=== PATIENT | male | born 1950 | race Caucasian/White ===

== ENCOUNTER 2018-04-10 14:53 | Emergency (ER) | payer BC, MEDICARE ==
[~2018-04-10] VITALS: Ht 188 cm; Wt 96.0 kg
[~2018-04-10 14:53] MED LIST: ASPI-1265 PO; PSYL575P22 PO
[2018-04-10 14:56] VITALS: BP 137/37
[2018-04-10] MEDS ORDERED: LIDOcaine 1.5% w/epinephrine 1:200,000 5ml ampul IJ ONE (16:55)
[2018-04-10] MEDS ORDERED: LIDOcaine 1% w/epiNEPHrine 1:200,000 30ml vial IJ ONE (17:00)
== END 2018-04-10 17:31 | disposition home or self-care (01) ==
LOC: ER 14:54
DX: S61.211A Laceration without foreign body of left index finger without damage to nail, initial encounter (principal); Z88.6 Allergy status to analgesic agent; Z88.5 Allergy status to narcotic agent; W26.8XXA Contact with other sharp object(s), not elsewhere classified, initial encounter; Y93.89 Activity, other specified; Y92.89 Other specified places as the place of occurrence of the external cause; Y99.8 Other external cause status
CPT/HCPCS: 12001; 99283; J3490

== ENCOUNTER 2018-04-24 07:44 | Emergency (ER) | payer BC, MEDICARE ==
[~2018-04-24] VITALS: Ht 188 cm; Wt 90.0 kg
[2018-04-24 08:45] VITALS: BP 100/56
== END 2018-04-24 08:49 | disposition home or self-care (01) ==
LOC: ER 07:45
DX: S61.212A Laceration without foreign body of right middle finger without damage to nail, initial encounter (principal); Z79.82 Long term (current) use of aspirin; Z88.5 Allergy status to narcotic agent; W45.8XXA Other foreign body or object entering through skin, initial encounter; Y93.89 Activity, other specified; Y92.89 Other specified places as the place of occurrence of the external cause; Y99.8 Other external cause status
CPT/HCPCS: 12001; 99283

== ENCOUNTER 2024-01-20 21:53 | Inpatient (IN) | payer MEDICARE, OTHER ==
[~2024-01-20] VITALS: Ht 188 cm; Wt 99.1 kg
[2024-01-20 22:51] LABS: BASOPHILS % (AUTO) 0.2 % (0-1); EOSINOPHILS % (AUTO) 0.2 % (0-6); HEMOGLOBIN 14.2 g/dl (14.0-17.9); LYMPHOCYTES # (AUTO) 0.5 X10'3 (1.1-4.8); LYMPHOCYTES % (AUTO) 3.2 % (21-51); MEAN CORPUSCULAR HEMOGLOBIN 30.2 PG (27.0-31.0); MEAN CORPUSCULAR HGB CONC 32.9 g/dL (33.0-36.5); MEAN CORPUSCULAR VOLUME 91.7 FL (78-98); MEAN PLATELET VOLUME 7.4 FL (7.4-10.4); MONOCYTES # (AUTO) 0.1 X10'3 (0-0.9); MONOCYTES % (AUTO) 0.4 % (2-12); NEUTROPHILS # (AUTO) 16.4 X10'3 (1.8-7.7); PLATELET COUNT 404 X10'3 (140-440); RED BLOOD COUNT 4.69 X10'6 (4.70-6.10); WHITE BLOOD COUNT 17.1 X10'3 (4.5-11.0)
[2024-01-20 22:58] LABS: ALANINE AMINOTRANSFERASE 26 U/L (12-78); ALBUMIN 3.1 G/DL (3.4-5.0); ALBUMIN/GLOBULIN RATIO 0.7 (1.1-1.5); ALKALINE PHOSPHATASE 94 IU/L (46-116); ANION GAP 8 (8-16); ASPARTATE AMINO TRANSFERASE 28 U/L (10-37); BILIRUBIN,TOTAL 0.6 MG/DL (0.1-1.0); BLOOD UREA NITROGEN 20 MG/DL (7-18); BUN/CREATININE RATIO 13.7 (10.0-20.0); CALCIUM 9.1 MG/DL (8.5-10.1); CHLORIDE 103 MMOL/L (99-107); CREATININE 1.46 MG/DL (0.60-1.10); GLUCOSE 160 MG/DL (70-104); LIPASE 18 U/L (16-77); SODIUM 137 MMOL/L (135-145); TOTAL CARBON DIOXIDE 25.6 MMOL/L (24-32); TOTAL PROTEIN 7.3 G/DL (6.4-8.2); eCRCL 52 ML/MIN; eGFR 47 ML/MIN
[2024-01-20 23:19] LABS: BILIRUBIN,URINE NEGATIVE (Neg); COLOR,URINE YELLOW (Yellow); GLUCOSE, URINE NEGATIVE (Neg); KETONES,URINE NEGATIVE (Neg); LEUKOCYTE ESTERASE ,URINE SMALL (Neg); NITRITES, URINE POSITIVE (Neg); OCCULT BLOOD,URINE MODERATE (Neg); PH,URINE 5.5 (4.8-8.0); PROTEIN,URINE NEGATIVE (Neg); UROBILINOGEN,URINE 0.2 E.U/dL (0.2-1.0)
[2024-01-20 23:20] LABS: CLARITY,URINE SLIGHTLY CLOUDY (Clear); UA COLLECTION TYPE CLN CATCH MIDSTREAM
[2024-01-20 23:32] LABS: BACTERIA,URINE 4+ /HPF (Neg); SQUAMOUS EPITHELIAL CELL,UR FEW /LPF (FEW)
[2024-01-20 23:33] LABS: TRANSITIONAL EPI CELLS,URINE FEW /HPF; WBC CLUMPS,URINE MODERATE /HPF (NEGATIVE); WBC,URINE 30-50 /HPF (0-4)
[2024-01-20] MEDS: normal saline 1000ml 1,000 ML IV ONE (23:52)
[2024-01-21] VITALS (19 sets, daily range): BP systolic 94–122; BP diastolic 42–66; PULSE 69–94; RESP 16–23; TEMP 98.4–98.6; O2SAT 92–98
[2024-01-21] MEDS: fentaNYL/PF 50MCG/1 ML 2ML syringe IV ONE
[2024-01-21] MEDS: ondansetron/PF 4mg/2ml inj IV ONE
[2024-01-21] MEDS: ketorolac trometh 15mg/ml vial 15 MG/ML ML IV ONE (00:26)
[2024-01-21] MEDS ORDERED: ondansetron/PF 4mg/2ml inj IV PRN ×2 (01:20→23:40)
[2024-01-21] MEDS: CefTRIAXone 2gm/D5W 50ml BAG 50 ML IV ONE (01:32)
[2024-01-21] MEDS: normal saline 1000ml 1,000 ML IV SCH (02:08)
[2024-01-21] MEDS: HYDROmorphone inj. 0.5 MG/0.5 ML DISP.SYRIN IV PRN (03:50)
[2024-01-21] MEDS: acetaminophen 325mg tablet PO PRN (05:55)
[2024-01-21] MEDS: HYDROcodone/acetaminophen 5mg/325mg tablet PO PRN (05:56)
[2024-01-21] MEDS: heparin, porcine 5000 units/ml vial SQ SCH (08:00)
[2024-01-21] MEDS: psyllium seed 5.8 gm packet (sugar-free) PO SCH (08:18)
[2024-01-21 09:03] LABS: URIC ACID 7.5 MG/DL (3.5-7.2)
[2024-01-21 10:06] LABS: BASOPHILS # (AUTO) 0.1 X10'3 (0-0.2); BASOPHILS % (AUTO) 0.2 % (0-1); EOSINOPHILS % (AUTO) 0 % (0-6); HEMATOCRIT 38.3 % (42.0-52.0); HEMOGLOBIN 12.6 g/dl (14.0-17.9); LYMPHOCYTES # (AUTO) 0.3 X10'3 (1.1-4.8); LYMPHOCYTES % (AUTO) 1.1 % (21-51); MEAN CORPUSCULAR HEMOGLOBIN 30.5 PG (27.0-31.0); MEAN CORPUSCULAR HGB CONC 33.1 g/dL (33.0-36.5); MEAN CORPUSCULAR VOLUME 92.3 FL (78-98); MONOCYTES # (AUTO) 0.8 X10'3 (0-0.9); MONOCYTES % (AUTO) 2.8 % (2-12); NEUTROPHILS # (AUTO) 27.3 X10'3 (1.8-7.7); NEUTROPHILS % (AUTO) 95.9 % (42-75); PLATELET COUNT 324 X10'3 (140-440); RED BLOOD COUNT 4.14 X10'6 (4.70-6.10); RED CELL DISTRIBUTION WIDTH 13.8 % (11.5-14.5)
[2024-01-21 10:17] LABS: ALANINE AMINOTRANSFERASE 16 U/L (12-78); ALBUMIN 2.4 G/DL (3.4-5.0); ALBUMIN/GLOBULIN RATIO 0.7 (1.1-1.5); ALKALINE PHOSPHATASE 65 IU/L (46-116); ANION GAP 11 (8-16); ASPARTATE AMINO TRANSFERASE 24 U/L (10-37); BILIRUBIN,TOTAL 0.6 MG/DL (0.1-1.0); BLOOD UREA NITROGEN 21 MG/DL (7-18); BUN/CREATININE RATIO 12.3 (10.0-20.0); CALCIUM 8.3 MG/DL (8.5-10.1); CHLORIDE 105 MMOL/L (99-107); CREATININE 1.71 MG/DL (0.60-1.10); GLUCOSE 112 MG/DL (70-104); POTASSIUM 4.3 MMOL/L (3.5-5.1); SODIUM 136 MMOL/L (135-145); TOTAL CARBON DIOXIDE 20.1 MMOL/L (24-32); eCRCL 44 ML/MIN; eGFR 39 ML/MIN
[2024-01-21 10:27] LABS: WHITE BLOOD COUNT 28.5 X10'3 (4.5-11.0)
[2024-01-21 10:48] LABS: TOTAL CELLS COUNTED 100
[2024-01-21 10:54] LABS: PLATELET ESTIMATE NORMAL
[2024-01-21 13:52] LABS: BASOPHILS % (AUTO) 0.1 % (0-1); EOSINOPHILS # (AUTO) 0.1 X10'3 (0-0.9); EOSINOPHILS % (AUTO) 0.2 % (0-6); HEMATOCRIT 36.8 % (42.0-52.0); HEMOGLOBIN 12.2 g/dl (14.0-17.9); LYMPHOCYTES # (AUTO) 0.5 X10'3 (1.1-4.8); LYMPHOCYTES % (AUTO) 1.5 % (21-51); MEAN CORPUSCULAR HEMOGLOBIN 30.6 PG (27.0-31.0); MEAN CORPUSCULAR HGB CONC 33.1 g/dL (33.0-36.5); MEAN CORPUSCULAR VOLUME 92.3 FL (78-98); MEAN PLATELET VOLUME 7.2 FL (7.4-10.4); MONOCYTES # (AUTO) 0.5 X10'3 (0-0.9); MONOCYTES % (AUTO) 1.7 % (2-12); NEUTROPHILS # (AUTO) 29.9 X10'3 (1.8-7.7); NEUTROPHILS % (AUTO) 96.5 % (42-75); PLATELET COUNT 285 X10'3 (140-440); RED BLOOD COUNT 3.98 X10'6 (4.70-6.10); RED CELL DISTRIBUTION WIDTH 13.7 % (11.5-14.5)
[2024-01-21 14:07] LABS: ALANINE AMINOTRANSFERASE 22 U/L (12-78); ALBUMIN 2.3 G/DL (3.4-5.0); ALBUMIN/GLOBULIN RATIO 0.6 (1.1-1.5); ALKALINE PHOSPHATASE 68 IU/L (46-116); ANION GAP 6 (8-16); ASPARTATE AMINO TRANSFERASE 36 U/L (10-37); BILIRUBIN,TOTAL 0.6 MG/DL (0.1-1.0); BLOOD UREA NITROGEN 24 MG/DL (7-18); BUN/CREATININE RATIO 13.2 (10.0-20.0); CALCIUM 8.4 MG/DL (8.5-10.1); CHLORIDE 102 MMOL/L (99-107); CREATININE 1.82 MG/DL (0.60-1.10); GLUCOSE 139 MG/DL (70-104); POTASSIUM 4.6 MMOL/L (3.5-5.1); SODIUM 132 MMOL/L (135-145); TOTAL CARBON DIOXIDE 23.7 MMOL/L (24-32); TOTAL PROTEIN 5.9 G/DL (6.4-8.2); eCRCL 41 ML/MIN; eGFR 37 ML/MIN
[2024-01-21 14:12] LABS: PRO BRAIN NATRIURETIC PEPTIDE 5144 PG/ML (0-125)
[2024-01-21] MEDS: iohexol 300 MG/1 ML 50ml polymer ONE ×2 (14:21)
[2024-01-21] MEDS: BUPIVAcaine 0.25% w/Epi /PF 30ml vial IJ ONE (16:03)
[2024-01-21] MEDS ORDERED: fentaNYL/PF 50MCG/1 ML 2ML syringe ONE (17:02)
[2024-01-21] MEDS ORDERED: sevoflurane 250ml liquid IH ONE (17:04)
[2024-01-21] MEDS ORDERED: midazolam 1 mg/ML 2ml injection ONE (17:09)
[2024-01-21] MEDS ORDERED: dexamethasone sod phosphate 4mg/ml inj. ONE (17:18)
[2024-01-21] MEDS ORDERED: propofol inj 20 ML IV ONE (17:18)
[2024-01-21] MEDS ORDERED: ondansetron/PF 4mg/2ml inj ONE (17:18)
[2024-01-21] MEDS ORDERED: LIDOcaine 2% (20mg/ml) 5ml vial ONE (17:21)
[2024-01-21] MEDS: iohexol 300 MG/1 ML 10ml vial IJ ONE (17:23)
[2024-01-21] MEDS: CefTRIAXone/D5W-Rocephin 1gm 50 ML IV SCH (22:16)
[2024-01-21] MEDS: ringers solution, lacted 1,000 ML IV SCH (23:40)
[2024-01-21] MEDS ORDERED: meperidine/PF 25mg/ml syringe IV PRN (23:40)
[2024-01-22 02:00] VITALS: BP 97/59; PULSE 68; RESP 19; TEMP 97.8; O2SAT 96
[2024-01-22 05:43] LABS: BASOPHILS % (AUTO) 0.1 % (0-1); EOSINOPHILS % (AUTO) 0 % (0-6); HEMATOCRIT 37.3 % (42.0-52.0); HEMOGLOBIN 12.4 g/dl (14.0-17.9); LYMPHOCYTES # (AUTO) 0.6 X10'3 (1.1-4.8); LYMPHOCYTES % (AUTO) 1.8 % (21-51); MEAN CORPUSCULAR HEMOGLOBIN 30.5 PG (27.0-31.0); MEAN CORPUSCULAR HGB CONC 33.2 g/dL (33.0-36.5); MEAN CORPUSCULAR VOLUME 91.7 FL (78-98); MONOCYTES # (AUTO) 0.7 X10'3 (0-0.9); MONOCYTES % (AUTO) 2.3 % (2-12); NEUTROPHILS % (AUTO) 95.8 % (42-75); PLATELET COUNT 268 X10'3 (140-440); RED BLOOD COUNT 4.07 X10'6 (4.70-6.10); RED CELL DISTRIBUTION WIDTH 14.2 % (11.5-14.5)
[2024-01-22 05:50] LABS: ALBUMIN 2.2 G/DL (3.4-5.0); ANION GAP 7 (8-16); BLOOD UREA NITROGEN 23 MG/DL (7-18); BUN/CREATININE RATIO 16.9 (10.0-20.0); CALCIUM 8.6 MG/DL (8.5-10.1); CHLORIDE 103 MMOL/L (99-107); CREATININE 1.36 MG/DL (0.60-1.10); GLUCOSE 141 MG/DL (70-104); POTASSIUM 4.2 MMOL/L (3.5-5.1); SODIUM 134 MMOL/L (135-145); TOTAL CARBON DIOXIDE 24.1 MMOL/L (24-32); eCRCL 55 ML/MIN; eGFR 51 ML/MIN
[2024-01-22 05:55] LABS: WHITE BLOOD COUNT 32.4 X10'3 (4.5-11.0)
[2024-01-22] MEDS: ringers solution, lacted 1,000 ML IV ONE (06:40)
[2024-01-22 09:03] LABS: TOTAL CELLS COUNTED 100
[2024-01-22 09:04] LABS: BURR CELLS 1+; PLATELET ESTIMATE NORMAL
[2024-01-22 10:07] LABS: BASOPHILS % (AUTO) 0 % (0-1); EOSINOPHILS % (AUTO) 0 % (0-6); HEMATOCRIT 39.1 % (42.0-52.0); HEMOGLOBIN 12.9 g/dl (14.0-17.9); LYMPHOCYTES # (AUTO) 0.5 X10'3 (1.1-4.8); LYMPHOCYTES % (AUTO) 1.6 % (21-51); MEAN CORPUSCULAR HEMOGLOBIN 30.2 PG (27.0-31.0); MEAN CORPUSCULAR VOLUME 91.5 FL (78-98); MONOCYTES # (AUTO) 0.7 X10'3 (0-0.9); NEUTROPHILS # (AUTO) 32.9 X10'3 (1.8-7.7); NEUTROPHILS % (AUTO) 96.4 % (42-75); PLATELET COUNT 298 X10'3 (140-440); RED BLOOD COUNT 4.27 X10'6 (4.70-6.10); RED CELL DISTRIBUTION WIDTH 14.3 % (11.5-14.5)
[2024-01-22 10:14] LABS: WHITE BLOOD COUNT 34.1 X10'3 (4.5-11.0)
[2024-01-22] MEDS ORDERED: bisacodyl 10mg suppository rectal RC PRN (16:30)
[2024-01-22 18:00] VITALS: BP_SYST 117; BP_SYST 132; BP_DIAS 50; BP_DIAS 73; PULSE 77; PULSE 79; RESP 17; RESP 18; TEMP 97.5; TEMP 98.7; O2SAT 96; O2SAT 97
[2024-01-22 22:00] VITALS: BP 117/50; PULSE 77; RESP 17; TEMP 98.7; O2SAT 96
[2024-01-23 05:47] LABS: BASOPHILS % (AUTO) 0 % (0-1); EOSINOPHILS % (AUTO) 0.1 % (0-6); HEMATOCRIT 36.5 % (42.0-52.0); HEMOGLOBIN 12.2 g/dl (14.0-17.9); LYMPHOCYTES # (AUTO) 1.4 X10'3 (1.1-4.8); LYMPHOCYTES % (AUTO) 5.5 % (21-51); MEAN CORPUSCULAR HEMOGLOBIN 30.6 PG (27.0-31.0); MEAN CORPUSCULAR HGB CONC 33.4 g/dL (33.0-36.5); MEAN CORPUSCULAR VOLUME 91.7 FL (78-98); MEAN PLATELET VOLUME 8.2 FL (7.4-10.4); MONOCYTES # (AUTO) 1.5 X10'3 (0-0.9); MONOCYTES % (AUTO) 5.9 % (2-12); NEUTROPHILS # (AUTO) 22.2 X10'3 (1.8-7.7); NEUTROPHILS % (AUTO) 88.5 % (42-75); PLATELET COUNT 274 X10'3 (140-440); RED BLOOD COUNT 3.98 X10'6 (4.70-6.10); RED CELL DISTRIBUTION WIDTH 14.1 % (11.5-14.5)
[2024-01-23 05:49] LABS: ALBUMIN 2.2 G/DL (3.4-5.0); ANION GAP 4 (8-16); BLOOD UREA NITROGEN 24 MG/DL (7-18); CALCIUM 8.5 MG/DL (8.5-10.1); CHLORIDE 106 MMOL/L (99-107); CREATININE 1.33 MG/DL (0.60-1.10); GLUCOSE 109 MG/DL (70-104); POTASSIUM 4.2 MMOL/L (3.5-5.1); SODIUM 137 MMOL/L (135-145); TOTAL CARBON DIOXIDE 27.5 MMOL/L (24-32); eCRCL 57 ML/MIN; eGFR 53 ML/MIN
[2024-01-23 05:51] LABS: WHITE BLOOD COUNT 25.1 X10'3 (4.5-11.0)
[2024-01-23 06:00] VITALS: BP 160/85; PULSE 81; RESP 16; TEMP 97.7; O2SAT 95
[2024-01-23 06:22] LABS: TOTAL CELLS COUNTED 100
[2024-01-23 06:23] LABS: BURR CELLS FEW; ELLIPTOCYTES FEW; PLATELET ESTIMATE NORMAL
[2024-01-23] MEDS: magnesium hydroxide 30ml (MOM) UD suspension PO PRN (09:39)
[2024-01-23 18:00] VITALS: BP 148/82; PULSE 54; RESP 16; TEMP 98.4; O2SAT 97
[2024-01-23 22:00] VITALS: BP 130/62; PULSE 71; RESP 16; TEMP 98.5; O2SAT 96
[2024-01-24 05:18] LABS: BASOPHILS # (AUTO) 0.1 X10'3 (0-0.2); BASOPHILS % (AUTO) 0.6 % (0-1); EOSINOPHILS # (AUTO) 0.2 X10'3 (0-0.9); EOSINOPHILS % (AUTO) 1.4 % (0-6); HEMATOCRIT 38.4 % (42.0-52.0); HEMOGLOBIN 12.8 g/dl (14.0-17.9); LYMPHOCYTES # (AUTO) 1.7 X10'3 (1.1-4.8); LYMPHOCYTES % (AUTO) 12.5 % (21-51); MEAN CORPUSCULAR HEMOGLOBIN 30.2 PG (27.0-31.0); MEAN CORPUSCULAR HGB CONC 33.2 g/dL (33.0-36.5); MEAN CORPUSCULAR VOLUME 91.1 FL (78-98); MEAN PLATELET VOLUME 8.2 FL (7.4-10.4); MONOCYTES # (AUTO) 0.8 X10'3 (0-0.9); MONOCYTES % (AUTO) 6.1 % (2-12); NEUTROPHILS # (AUTO) 10.7 X10'3 (1.8-7.7); NEUTROPHILS % (AUTO) 79.4 % (42-75); PLATELET COUNT 279 X10'3 (140-440); RED BLOOD COUNT 4.22 X10'6 (4.70-6.10); RED CELL DISTRIBUTION WIDTH 14.3 % (11.5-14.5); WHITE BLOOD COUNT 13.4 X10'3 (4.5-11.0)
[2024-01-24 05:28] LABS: ALBUMIN 2.2 G/DL (3.4-5.0); ANION GAP 5 (8-16); BLOOD UREA NITROGEN 22 MG/DL (7-18); CALCIUM 8.2 MG/DL (8.5-10.1); CHLORIDE 104 MMOL/L (99-107); CREATININE 1.16 MG/DL (0.60-1.10); GLUCOSE 91 MG/DL (70-104); SODIUM 135 MMOL/L (135-145); TOTAL CARBON DIOXIDE 26.4 MMOL/L (24-32); eCRCL 65 ML/MIN; eGFR 62 ML/MIN
[2024-01-24 06:00] VITALS: BP 115/63; PULSE 86; RESP 16; TEMP 98.1; O2SAT 95
[2024-01-24 08:00] VITALS: RESP 16
[2024-01-24 10:00] VITALS: BP 121/75; PULSE 79; RESP 16; TEMP 97.2; O2SAT 97
[2024-01-24] MEDS ORDERED: LEVO-65 PO (11:04)
== END 2024-01-24 13:20 | disposition home or self-care (01) | DRG 853 ==
LOC: ER 21:54 → ED HOLD 01-21 01:22 → EDBEDREQ 01-21 02:34 → SUR 3N 01-21 19:10
PROVIDERS: ADMIT Internal Medicine Sleep Medicine; ATTEND Family Medicine
PROC: BW21ZZZ Computerized Tomography (CT Scan) of Abdomen and Pelvis (ICD-10-PCS; 2024-01-20)
PROC: BT141ZZ Fluoroscopy of Kidneys, Ureters and Bladder using Low Osmolar Contrast (ICD-10-PCS; 2024-01-21)
PROC: 0T748DZ Dilation of Left Kidney Pelvis with Intraluminal Device, Via Natural or Artificial Opening Endoscopic (ICD-10-PCS; 2024-01-21)
PROC: 0T738DZ Dilation of Right Kidney Pelvis with Intraluminal Device, Via Natural or Artificial Opening Endoscopic (ICD-10-PCS; principal; 2024-01-21 17:04)
DX: A41.9 Sepsis, unspecified organism (principal); N17.0 Acute kidney failure with tubular necrosis; N13.6 Pyonephrosis; I25.10 Atherosclerotic heart disease of native coronary artery without angina pectoris; Z95.5 Presence of coronary angioplasty implant and graft; M10.9 Gout, unspecified; Z88.5 Allergy status to narcotic agent; Z88.6 Allergy status to analgesic agent; Z88.8 Allergy status to other drugs, medicaments and biological substances; N40.0 Benign prostatic hyperplasia without lower urinary tract symptoms
CPT/HCPCS: 36415; 71045; 74176; 76000; 80048; 80053; 81001; 83605; 83690; 83880; 84145; 84484; 84550; 85007; 85025; 87040; 87077; 87088; 87186; 93005; 96374; 96375; 97116; 97161; 97530; 99285; A4615; A4618; C1769; C2617; G0378; J0696; J1100; J1171; J1644; J1885; J2250; J2405; J2704; J2765; J3010; J3490; J7030; J7040; J7120; Q9967; S0020

== ENCOUNTER 2024-08-06 19:34 | Emergency (ER) | payer OTHER, MEDICARE ==
[~2024-08-06] VITALS: Ht 188 cm; Wt 100.6 kg
[~2024-08-06 19:34] MED LIST changes: -ASPI-1265 PO; +LEVO-65 PO
[2024-08-06 20:30] LABS: BILIRUBIN,URINE NEGATIVE (Neg); CLARITY,URINE CLEAR (Clear); COLOR,URINE YELLOW (Yellow); GLUCOSE, URINE NEGATIVE (Neg); KETONES,URINE NEGATIVE (Neg); LEUKOCYTE ESTERASE ,URINE NEGATIVE (Neg); NITRITES, URINE NEGATIVE (Neg); OCCULT BLOOD,URINE TRACE-INTACT (Neg); PH,URINE 5.5 (4.8-8.0); PROTEIN,URINE NEGATIVE (Neg); UROBILINOGEN,URINE 0.2 E.U/dL (0.2-1.0)
[2024-08-06 20:35] LABS: UA COLLECTION TYPE NON-SPECIFIED
[2024-08-06 20:47] VITALS: TEMP 98.4
[2024-08-06 20:50] LABS: BACTERIA,URINE NONE SEEN /HPF (Neg); RBC,URINE 0-2 /HPF (0-2); SQUAMOUS EPITHELIAL CELL,UR FEW /LPF (FEW); WBC,URINE 0-4 /HPF (0-4)
[2024-08-06 21:05] LABS: BASOPHILS # (AUTO) 0.1 X10'3 (0-0.2); BASOPHILS % (AUTO) 0.6 % (0-1); EOSINOPHILS % (AUTO) 0.3 % (0-6); HEMATOCRIT 41.9 % (42.0-52.0); HEMOGLOBIN 14.2 g/dl (14.0-17.9); LYMPHOCYTES # (AUTO) 0.8 X10'3 (1.1-4.8); LYMPHOCYTES % (AUTO) 6.8 % (21-51); MEAN CORPUSCULAR HEMOGLOBIN 29.3 PG (27.0-31.0); MEAN CORPUSCULAR HGB CONC 33.8 g/dL (33.0-36.5); MEAN CORPUSCULAR VOLUME 86.8 FL (78-98); MEAN PLATELET VOLUME 7.7 FL (7.4-10.4); MONOCYTES # (AUTO) 0.7 X10'3 (0-0.9); MONOCYTES % (AUTO) 6.3 % (2-12); NEUTROPHILS # (AUTO) 9.5 X10'3 (1.8-7.7); PLATELET COUNT 256 X10'3 (140-440); RED BLOOD COUNT 4.83 X10'6 (4.70-6.10); RED CELL DISTRIBUTION WIDTH 15.1 % (11.5-14.5); WHITE BLOOD COUNT 11.1 X10'3 (4.5-11.0)
[2024-08-06 21:22] LABS: ALANINE AMINOTRANSFERASE 22 U/L (12-78); ALBUMIN 3.3 G/DL (3.4-5.0); ALBUMIN/GLOBULIN RATIO 0.9 (1.1-1.5); ALKALINE PHOSPHATASE 82 IU/L (46-116); ANION GAP 9 (8-16); ASPARTATE AMINO TRANSFERASE 17 U/L (10-37); BILIRUBIN,TOTAL 0.5 MG/DL (0.1-1.0); BLOOD UREA NITROGEN 40 MG/DL (7-18); BUN/CREATININE RATIO 20.3 (10.0-20.0); CALCIUM 8.7 MG/DL (8.5-10.1); CHLORIDE 106 MMOL/L (99-107); CREATININE 1.97 MG/DL (0.60-1.10); GLUCOSE 137 MG/DL (70-104); LIPASE 20 U/L (16-77); POTASSIUM 4.2 MMOL/L (3.5-5.1); SODIUM 136 MMOL/L (135-145); TOTAL CARBON DIOXIDE 21.3 MMOL/L (24-32); TOTAL PROTEIN 6.9 G/DL (6.4-8.2); eCRCL 38 ML/MIN; eGFR 33 ML/MIN
[2024-08-06] MEDS: morphine 4 MG/ML inj SYRINge IV ONE (21:33)
--- NOTE | 2024-08-06 22:36 | Physician Documentation ---
History of Present Illness Chief Complaint: Flank Pain Stated Complaint: KIDNEY PAIN Time Seen by MD: 22:01 OK to notify your PCP?: Yes Primary Medical Doctor: Nick Brooks [employer] Source: patient, family, RN/MD, RN notes reviewed, EMS notes reviewed, old records Mode of Arrival: Ambulatory Exam Limitations: no limitations HPI 73 year old male, with a history of kidney stones, presents complaining of right flank pain that began around 1130 today. Pain has been constant and waxing/waning. At its worst it was 10/10, but has improved after taking a pain pill. Pain began in the right flank but migrated into the right lower abdomen. Pain is very similar to prior kidney stones. notes that he had some nausea as well but no vomiting, fever, diarrhea, chest pain, or shortness of breath. He denies any burning of his skin or rash. He also took one tablet of Keflex earlier today. Per old records, patient was admitted in May of this year due to nephrolithiasis, pyelonephritis, and SANTY with ureteral stent placement by Dr. Burton. He also has a history of ureteroscopic stone extraction in April with Dr. Sanders. Medication Reconciliation Allergies: Coded Allergies: codeine (Verified Adverse Reaction, Unknown, SICK TO STOMACH, 08/06/24) Scheduled Levofloxacin (Levofloxacin), 1 TAB PO DAILY Psyllium Husk (with Sugar) (Metamucil Powder), 3 TBS PO DAILY, (Reported) Past Medical History Past Medical History: Diverticulitis, Kidney Stones, Renal Disease, UTI Past Surgical History: noncontributory Drug Use: none Lives with: Family Lives In: Home Review of Systems All Other Systems at this time: Reviewed and Negative ROS As stated above in the HPI, otherwise all systems are reviewed and negative. Physical Exam Vital Signs: RN Vital Signs have been reviewed: Yes, Temperature: 98.4, Source: Temporal, Heart Rate: 67, Respiratory Rate: 16, BP: 133/89, Pulse Oximetry: 96, Weight: 100.600 Oxygen Flow Rate: 0 Pulse Oximetry Reflects: adequate oxygenation Physical Exam General: The patient is well developed, well nourished, nontoxic appearing and is in no acute distress. Skin: [place], warm and dry with no rashes. HEENT: Head was normocephalic and atraumatic. Chest: Clear to auscultation bilaterally without wheezes, rales or rhonchi. No accessory muscle use. No dullness to percussion. Heart: Rate regular and rhythmic. S1, S2. No murmurs. Palpation of the chest wall was normal. No rubs or thrills. Abdomen: Mild diffuse abdominal tenderness. Soft, and nondistended. Positive bowel sounds. No guarding or rebound. Extremities: No cyanosis, clubbing or edema. The patient moves all extremities. Pulses were equal and symmetric. Neurologic: Motor and sensation grossly intact. Cranial nerves II-XII grossly intact. A & O x4. Psychologic: Normal mood and affect. No agitation. Progress Progress Note 2350: Patient reports he has had chronic low back pain he will need surgery in the future. He has had prior spinal fusion but has had increased pain over the last 1.5 years. Results/Orders Reviewed/noted all lab results: Yes Results/Orders Orders - FRED TREVINO MD Straight Cath For Urine Sample (08/06/24 19:49) Ct Abdomen Pelvis (08/06/24 22:00) Completed Orders - FRED TREVINO MD Cbc/Diff (08/06/24 19:49) BMP (08/06/24 19:49) Lipase (08/06/24 19:49) CMP (08/06/24 19:49) Ua W/Microscopic, Cult If Ind (08/06/24 20:14) Morphine 4mg/Ml Inj. (Morphine Inj.) (08/06/24 20:55) Ct Abdomen Pelvis (08/06/24 22:00) Medications Received in ER Medications (Trade) Dose Ordered Sig/[place] Route PRN Reason Start Time Stop Time Status Last Admin Dose Admin (morphine inj.) 4 mg ONCE ONCE IV 08/06/24 20:55 08/06/24 20:56 DC 08/06/24 21:33 4 MG Vital Signs 08/06/24 08/06/24 08/06/24 08/06/24 19:40 20:47 20:55 21:33 Temp 98.7 98.4 Pulse 70 67 Resp 16 16 18 16 B/P (MAP) 174/85 133/89 (104) Pulse Ox 97 96 O2 Flow Rate 0 0 Laboratory Tests Test 08/06/24 20:14 08/06/24 20:43 Urine Specimen Description Non-specified Urine Color Yellow Urine Clarity Clear Urine pH 5.5 Urine Specific [place] 1.025 Urine Protein Negative Urine Glucose (UA) Negative Urine Ketones Negative Urine Occult Blood Trace-intact Urine Nitrite Negative Urine Bilirubin Negative Urine Urobilinogen 0.2 Urine Leukocyte Esterase Negative Urine RBC 0-2 Urine WBC 0-4 Urine Squamous Epithelial Cells Few Urine Bacteria None seen Urine Mucus Urine Culture Indicated Not ind Volume Urine Centrifuged 10 ml Urine Comment White Blood Count 11.1 H Red Blood Count 4.83 Hemoglobin 14.2 Hematocrit 41.9 L Mean Corpuscular Volume 86.8 Mean Corpuscular Hemoglobin 29.3 Mean Corpuscular Hemoglobin Concent 33.8 Red Cell Distribution Width 15.1 H Platelet Count 256 Mean Platelet Volume 7.7 Neutrophils (%) (Auto) 86.0 H Lymphocytes (%) (Auto) 6.8 L Monocytes (%) (Auto) 6.3 Eosinophils (%) (Auto) 0.3 Basophils (%) (Auto) 0.6 Neutrophils # (Auto) 9.5 H Lymphocytes # (Auto) 0.8 L Monocytes # (Auto) 0.7 Eosinophils # (Auto) 0.0 Basophils # (Auto) 0.1 CBC Comment Sodium Level 136 Potassium Level 4.2 Chloride Level 106 Carbon Dioxide Level 21.3 L Anion Gap 9 Blood Urea Nitrogen 40 H Creatinine 1.97 H Estimated GFR/1.73 m2 33 BUN/Creatinine Ratio 20.3 H Glucose Level 137 H Calcium Level 8.7 Total Bilirubin 0.5 Aspartate Amino Transf (AST/SGOT) 17 Alanine Aminotransferase (ALT/SGPT) 22 Alkaline Phosphatase 82 Total Protein 6.9 Albumin 3.3 L Globulin 3.6 Albumin/Globulin Ratio 0.9 L Lipase 20 Chemistry Comments Re-Evaluation Re-Evaluation : Re-Evaluation: Improved Progress Patient was seen and examined. Patient was given reassurance. Laboratory work was obtained. Patient received morphine 4 mg then Dilaudid 1 mg as well as fluid boluses prior to discharge received another dose of Dilaudid. Patient had a CT of the abdomen pelvis as well as a lumbar spine abnormalities were found. However patient will be discharged home. Patient's abdomen shows polycystic disease with a large complex cysts and calcifications. There was some bilateral perinephric stranding. Patient also had what appears to be a stone that passed already from the right kidney. Patient's pain has been improving he also had some chronic disease seen on his lumbar spine but no neurological emergency. Patient was states that he was supposed to have a surgery in the past. He was given referral to a back surgeon neurosurgery to follow up. Laboratory work shows a WBC 11.1. H&H 14 and 41 platelets 256. Chemistry shows some renal insufficiency chronic with BUN of 40 creatinine of 1.97. LFTs within normal limits lipase within normal limits urinalysis is also within normal limits they are only 0-2 RBCs but 0-4 WBCs as well. No signs of hematuria to suggest a very retained renal stone. Continuous checkout operator interpretation shows normal sinus rhythm heart rate 70s, no ectopy, normal, my interpretation. Pulse oximetry monitor interpretation shows normal oxygenation at 97% room air, normal, my interpretation. EKG/XRAY/CT/US/VASC/MRI CT #1: Interpreted By: radiologist CT: abdomen/pelvis With Contrast?: No Impression Exam: CT ABDOMEN PELVIS History: abdominal pain Comparison Study: CT ABDOMEN AND PELVIS W/O on DOS: 05/14/24, CT CT ABDOMEN PELVIS on DOS: 01/20/24 Contrast: None TECHNIQUE: Multidetector CT of abdomen and pelvis without IV contrast. Radiation Dose Information: CT Dose: CTDI volume is 26.09 mGy. Dose-length product is 137.45 mGy*cm FINDINGS: There are dense calcifications in the proximal left anterior descending coronary artery in the left circumflex coronary artery and also there calcifications in the right coronary artery. Heart is still within normal limits for size. Lower esophagus is unremarkable. There are multiple simple and slightly complex cysts involving the kidneys bilaterally consistent with bilateral adult onset polycystic kidney disease. There are large stones in the collecting system of both kidneys. There is bilate ral perinephric stranding particularly involving the right kidney and there is right hydroureter but no stone is seen in the right ureter. Left ureter is unremarkable no stone seen in the left ureter. The pancreas is atrophied. There are dense calcifications in the abdominal aorta no aneurysm. Patient has had spacers placed in the lower lumbosacral spine Appendix is unremarkable. There is severe and extensive diverticulosis involving the distal transverse colon, the descending colon and the sigmoid colon. I do not see definite diverticulitis. There is fluid in the right upper quadrant which I believe is related to the right kidney and not due to diverticulitis. Liver and spleen are unremarkable. Calcifications in the kidneys do not appear to be in the collecting system but in the cyst moreno. There is a minimal atelectasis involving the left lower lobe as well. Bones are osteopenic and there is an L5-S1 spacer.. There may be small stones layering in the dependent portion of the gallbladder best seen on sagittal images please see image 79 of the sagittal images. IMPRESSION: Severe atherosclerotic disease with calcifications in the abdominal aorta and also in the coronary arteries. Bilateral adult onset polycystic kidney disease with cysts of various comple xities including large mural calcifications. Bilateral perinephric stranding but particularly involving the right kidney proximal right ureter though there is no evidence for obstruction. Extensive diverticulosis without definite diverticulitis. Surgery involving the lumbosacral spine. Apparent stones layering in the dependent portion of the bladder. Patient May have passed stones involving the right kidney and ureter Reviewed by , Dr. Trevino. CT #2: Interpreted By: radiologist CT: L-spine With Contrast?: No Impression Clinical History BACK PAIN Comparison None Technique: All CT scans at this medical facility are performed using dose modulation techniques as appropriate to a performed exam including the following: Automated exposure control was utilized; adjustment of the mA and/or kV according to patient size; and use of iterative reconstruction technique. All CT studies are reported to the Dose Index Registry of the [employer]. Without Contrast Radiation Dose: CTDI (mGy): 0000; DLP (mGy-cm): 0000 FAISAL FELDER, [id number] CT lumbar spine Clinical history: 74-year-old, back pain Findings: The vertebral bodies have normal height. There is a centrally herniated disc at L2-3. Impression: There is a centrally herniated disc at L2-3. Postsurgical findings at L5-S1 There is severe disc space degeneration at L4-5. This report was electronically signed by Toi Collier MD on 08/07/2024 2:32:56 AM. Reviewed by me Medical Decision Making Additional info obtained from: old records Differential Dx:Considerations: Include: AAA, Angina/VA, Aortic dissection, Appendicitis, Bowel obstruction, Cholangitis, Cholelithasis, Constipation, Dive rticular disease, Esophagitis, Gastritis/PUD, Gastroenteritis, GI hemorrhage, Hernia, Hepatitis, Inflammatory BD, Ischemic bowel, Pancreatitis, Urinary obstruction, Urinary tract infection, Urolithiasis, Other Departure Time of Disposition: 23:01 Disposition: 01 HOME / SELF CARE / HOMELESS Impression: Primary Impression: Renal colic on right side Additional Impressions: Polycystic renal disease Renal insufficiency Lumbar back pain Condition: Stable Discharge Instructions: Renal Colic Additional Instructions: Follow up with Dr. Sanders, urologist a, and Cierra, neurosurgeon. Take all your normal medications. Drink plenty of fluids. Return to the ER for worsening pain, fever, vomiting, or any other concerns. Referrals: EVITA RICHMOND MD, VICTORIANO MD Education Educated: Patient, Family Educated regarding: diagnosis, treatment, need for follow up Signature Scribe Signature: Scribed for Fred Trevino MD by Chris De La Garza . 08/06/24 22:53 Attestation: The note accurately reflects work and decisions made by me.Fred Trevino MD 08/06/24 22:36 FRED TREVINO MD August 06, 2024 22:36 CHRIS MATHEW August 06, 2024 22:58
--- NOTE | 2024-08-06 22:47 | RADIOLOGY REPORT ---
Exam: CT ABDOMEN PELVIS History: abdominal pain Comparison Study: CT ABDOMEN AND PELVIS W/O on DOS: 05/14/24, CT CT ABDOMEN PELVIS on DOS: 01/20/24 Contrast: None TECHNIQUE: Multidetector CT of abdomen and pelvis without IV contrast. Radiation Dose Information: CT Dose: CTDI volume is 26.09 mGy. Dose-length product is 137.45 mGy*cm FINDINGS: There are dense calcifications in the proximal left anterior descending coronary artery in the left c ircumflex coronary artery and also there calcifications in the right coronary artery. Heart is still within normal limits for size. Lower esophagus is unremarkable. There are multiple sim ple and slightly complex cysts involving the kidneys bilaterally consistent with bilateral adult onse t polycystic kidney disease. There are large stones in the collecting system of both kidneys. There is bilateral perinephric stranding particularly involving the right kidney and there is right hydrour eter but no stone is seen in the right ureter. Left ureter is unremarkable no stone seen in the left ureter. The pancreas is atrophied. There are dense calcifications in the abdominal aorta no aneurysm. Patient has had spacers placed in the lower lumbosacral spine Appendix is unremarkable. There is severe and extensive diverticulosis involving the distal transvers e colon, the descending colon and the sigmoid colon. I do not see definite diverticulitis. There is f luid in the right upper quadrant which I believe is related to the right kidney and not due to divert iculitis. Liver and spleen are unremarkable. Calcifications in the kidneys do not appear to be in the collecting system but in the cyst moreno. There is a minimal atelectasis involving the left lower lob e as well. Bones are osteopenic and there is an L5-S1 spacer.. There may be small stones layering in the dependent portion of the gallbladder best seen on sagittal images please see image 79 of the sagittal images. IMPRESSION: Severe atherosclerotic disease with calcifications in the abdominal aorta and also in the coronary ar teries. Bilateral adult onset polycystic kidney disease with cysts of various complexities including large mu ral calcifications. Bilateral perinephric stranding but particularly involving the right kidney proximal right ureter tho ugh there is no evidence for obstruction. Extensive diverticulosis without definite diverticulitis. Surgery involving the lumbosacral spine. Apparent stones layering in the dependent portion of the bladder. Patient May have passed stones inv olving the right kidney and ureter
[2024-08-06] MEDS: normal saline 1000ML IV soln IVB ONE (23:09)
[2024-08-06] MEDS: HYDROmorphone 1 mg/ml syringe IV ONE (23:10)
[2024-08-07] MEDS: HYDROmorphone 1 mg/ml syringe IV ONE (00:56)
[2024-08-07 01:06] VITALS: BP 152/82; PULSE 63; RESP 16; O2SAT 96
--- NOTE | 2024-08-07 02:36 | RADIOLOGY REPORT ---
Clinical History BACK PAIN Comparison None Technique: All CT scans at this medical facility are performed using dose modulation techniques as appropriate t o a performed exam including the following: Automated exposure control was utilized; adjustment of th e mA and/or kV according to patient size; and use of iterative reconstruction technique. All CT studies are reported to the Dose Index Registry of the [employer]. Without Contrast Radiation Dose: CTDI (mGy): 0000; DLP (mGy-cm): 0000 FAISAL FELDER, [id number] CT lumbar spine Clinical history: 74-year-old, back pain Findings: The vertebral bodies have normal height. There is a centrally herniated disc at L2-3. Impression: There is a centrally herniated disc at L2-3. Postsurgical findings at L5-S1 There is severe disc space degeneration at L4-5. This report was electronically signed by Toi Collier MD on 08/07/2024 2:32:56 AM.
== END 2024-08-07 01:09 | disposition home or self-care (01) ==
LOC: ER 19:35
DX: N23 Unspecified renal colic (principal); R11.0 Nausea; Q61.2 Polycystic kidney, adult type; M54.50 Low back pain, unspecified; N28.9 Disorder of kidney and ureter, unspecified; I25.10 Atherosclerotic heart disease of native coronary artery without angina pectoris; Z87.442 Personal history of urinary calculi; Z88.5 Allergy status to narcotic agent; Z79.899 Other long term (current) drug therapy
CPT/HCPCS: 36415; 72131; 74176; 80053; 81001; 83690; 85025; 96361; 96374; 96375; 96376; 99285; J1171; J2270; J7030

== ENCOUNTER 2024-10-01 22:15 | Inpatient (IN) | payer OTHER, MEDICARE ==
[~2024-10-01] VITALS: Ht 190.5 cm; Wt 98.9 kg
--- NOTE | 2024-10-01 22:30 | ELECTROCARDIOGRAPH REPORT ---
[facility] Test Date: 2024-10-01 Test Time: 22:19:51 Pat Name: FAISAL FELDER Department: EMERGENCY ROOM Room: Gender: M Programming Intern: PAVEL : 1950 Requested By: MIKE TREVINO Order Number: [id number] Reading MD: Dr. Mike Trevino Measurements Intervals [place] Rate: 71 P: 61 MD: 158 QRS: 4 QRSD: 153 T: 51 QT: 436 QTc: 474 Interpretive Statements Sinus rhythm Probable left atrial enlargement Right bundle branch block Electronically Signed On 10-02-2024 0:41:[address] Mike Trevino Please click the below link to view image of tracing.
[2024-10-01 22:41] LABS: BASOPHILS # (AUTO) 0.1 X10'3 (0-0.2); EOSINOPHILS # (AUTO) 0.3 X10'3 (0-0.9); EOSINOPHILS % (AUTO) 3.2 % (0-6); HEMATOCRIT 39.8 % (42.0-52.0); HEMOGLOBIN 13.3 g/dl (14.0-17.9); LYMPHOCYTES # (AUTO) 1.9 X10'3 (1.1-4.8); LYMPHOCYTES % (AUTO) 22.3 % (21-51); MEAN CORPUSCULAR HEMOGLOBIN 29.1 PG (27.0-31.0); MEAN CORPUSCULAR HGB CONC 33.5 g/dL (33.0-36.5); MEAN PLATELET VOLUME 7.9 FL (7.4-10.4); MONOCYTES # (AUTO) 0.8 X10'3 (0-0.9); MONOCYTES % (AUTO) 9.5 % (2-12); NEUTROPHILS # (AUTO) 5.5 X10'3 (1.8-7.7); PLATELET COUNT 261 X10'3 (140-440); RED BLOOD COUNT 4.57 X10'6 (4.70-6.10); RED CELL DISTRIBUTION WIDTH 14.4 % (11.5-14.5); WHITE BLOOD COUNT 8.5 X10'3 (4.5-11.0)
[2024-10-01] MEDS: aspirin 81mg tab.chew PO ONE (22:44)
[2024-10-01 23:03] LABS: ANION GAP 10 (8-16); BLOOD UREA NITROGEN 39 MG/DL (7-18); BUN/CREATININE RATIO 16.5 (10.0-20.0); CALCIUM 8.8 MG/DL (8.5-10.1); CHLORIDE 106 MMOL/L (99-107); CREATININE 2.37 MG/DL (0.60-1.10); GLUCOSE 109 MG/DL (70-104); POTASSIUM 4.1 MMOL/L (3.5-5.1); PRO BRAIN NATRIURETIC PEPTIDE 539 PG/ML (0-450); SODIUM 140 MMOL/L (135-145); TOTAL CARBON DIOXIDE 24.5 MMOL/L (24-32); eGFR 27 ML/MIN
--- NOTE | 2024-10-01 23:37 | Physician Documentation ---
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 Patient states he had just eaten dinner and was sitting on the couch when he began feeling 8/10 chest pain that he described as burning. Patient states he was feeling feverish at this time but denies any fever, diaphoresis, shortness of breath, or dizziness. He states that he has been feeling weak and having chest pain and shortness of breath with exertion over the past week. 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 Patient denies any other associated symptoms at this time. Patient denies any other alleviating or exacerbating factors. Medication Reconciliation Allergies: Coded Allergies: codeine (Verified Adverse Reaction, Unknown, SICK TO STOMACH, 10/01/24) Scheduled Cefdinir* (Cefdinir*), 1 CAP PO Q12H, (Reported) Psyllium Husk (with Sugar) (Metamucil Powder), 3 TBS PO DAILY, (Reported) Discontinued Medications Levofloxacin (Levofloxacin), 1 TAB PO DAILY Discontinued Reason: patient no longer taking Past Medical History Past Medical History: Diverticulitis, Kidney Stones, Renal Disease, UTI Past Surgical History: noncontributory Drug Use: none Lives with: Family Lives In: Home Review of Systems All Other Systems at this time: Reviewed and Negative ROS As stated above in the HPI, otherwise all systems are reviewed and negative. Physical Exam Vital Signs: RN Vital Signs have been reviewed: Yes, Temperature: 98.5, Source: Temporal, Heart Rate: 80, Respiratory Rate: 16, BP: 176/98, Pulse Oximetry: 98 Oxygen Flow Rate: 0 Pulse Oximetry Reflects: adequate oxygenation Physical Exam General: The patient is well developed, well nourished, nontoxic appearing and is in no acute distress. Skin: Teller, warm and dry with no rashes. HEENT: Head was normocephalic and atraumatic. Eyes - pupils equal, round, reactive to light and accommodation. Extraocular movements were intact. Conjunctivae were nonicteric. Ears - bilateral tympanic membranes were normal. The mouth and oropharynx were clear with moist mucous membranes. There were no pharyngeal exudates or erythema. Neck: Supple and nontender. There was no jugular venous distention, lymphadenopathy, thyromegaly or masses. Chest: Clear to auscultation bilaterally without wheezes, rales or rhonchi. No accessory muscle use. No dullness to percussion. Heart: Rate regular and rhythmic. S1, S2. No murmurs. Palpation of the chest wall was normal. No rubs or thrills. Abdomen: Soft, nontender and nondistended. Positive bowel sounds. No guarding or rebound. No hepatosplenomegaly or palpable masses. Extremities: No cyanosis, clubbing or edema. The patient moves all extremities. Pulses were equal and symmetric. Neurologic: Cranial nerves II-XII were intact. Sensation was intact to light touch throughout. Motor strength was 5/5 in all four extremities. Deep tendon reflexes were intact in both upper and lower extremities. Psychologic: The patient was oriented to person, place and time. The patient demonstrated appropriate judgement and insight. Progress Progress Note 0000: The case was discussed with the hospitalist at this time who was informed and kindly agreed to admission. Results/Orders Results/Orders Medications Received in ER Medications (Trade) Dose Ordered Sig/Rivera Route PRN Reason Start Time Stop Time Status Last Admin Dose Admin (aspirin 81MG chew tablet) 324 mg ONCE ONCE PO 10/01/24 22:40 10/01/24 22:41 DC 10/01/24 22:44 324 MG Heparin Sodium/ Dextrose 250 ml @ 10 mls/hr Q25H PRN IV TO MAINTAIN PTT WITHIN RANGE 10/01/24 23:49 10/01/24 23:59 10 MLS/HR (heparin 10,000 unit/ml 1ml inj) 4,000 units ONCE ONCE IV 10/01/24 23:55 10/01/24 23:56 DC 10/01/24 23:56 4,000 UNITS (Nitro-Dur 0.2mg/ hour Patch) 1 patch ONCE ONCE TD 10/02/24 00:20 10/02/24 00:21 DC 10/02/24 00:39 1 PATCH Non-Formulary Medication 1 each ONCE ONCE IV 10/02/24 00:25 10/02/24 00:26 DC 10/02/24 00:39 1 EACH Vital Signs 10/01/24 10/01/24 10/02/24 22:20 22:37 00:45 Temp 98.5 Pulse 80 60 Resp 16 16 16 B/P (MAP) 176/98 160/84 (109) Pulse Ox 98 97 O2 Flow Rate 0 0 Laboratory Tests Test 10/01/24 22:23 10/02/24 00:49 White Blood Count 8.5 Red Blood Count 4.57 L Hemoglobin 13.3 L Hematocrit 39.8 L Mean Corpuscular Volume 87.0 Mean Corpuscular Hemoglobin 29.1 Mean Corpuscular Hemoglobin Concent 33.5 Red Cell Distribution Width 14.4 Platelet Count 261 Mean Platelet Volume 7.9 Neutrophils (%) (Auto) 64.0 Lymphocytes (%) (Auto) 22.3 Monocytes (%) (Auto) 9.5 Eosinophils (%) (Auto) 3.2 Basophils (%) (Auto) 1.0 Neutrophils # (Auto) 5.5 Lymphocytes # (Auto) 1.9 Monocytes # (Auto) 0.8 Eosinophils # (Auto) 0.3 Basophils # (Auto) 0.1 CBC Comment Prothrombin Time 10.1 INR International Normalized Ratio 1.0 Activated Partial Thromboplast Time 28 Coagulation Comments Sodium Level 140 Potassium Level 4.1 Chloride Level 106 Carbon Dioxide Level 24.5 Anion Gap 10 Blood Urea Nitrogen 39 H Creatinine 2.37 H Estimated GFR/1.73 m2 27 BUN/Creatinine Ratio 16.5 Glucose Level 109 H Hemoglobin A1c 5.8 Calcium Level 8.8 Magnesium Level 2.3 Total Bilirubin 0.2 Direct Bilirubin 0.1 Aspartate Amino Transf (AST/SGOT) 31 Alanine Aminotransferase (ALT/SGPT) 23 Alkaline Phosphatase 83 Troponin I High Sensitivity 856 *H Pro-B-Type Natriuretic Peptide 539 H Total Protein 7.1 Albumin 3.2 L Globulin 3.9 Albumin/Globulin Ratio 0.8 L Chemistry Comments Ethyl Alcohol Level < 10 Troponin I High Sens Percent Delta 101 Troponin I Hi Sens Absolute Change 871 EKG/XRAY/CT/US/VASC/MRI EKG : Additional Comment [facility] Test Date: 2024-10-01 Test Time: 22:19:51 Pat Name: FAISAL FELDER Department: EMERGENCY ROOM Room: Gender: M 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 Mike Trevino Measurements Intervals [place] Rate: 71 P: 61 WY: 158 QRS: 4 QRSD: 153 T: 51 QT: 436 QTc: 474 Interpretive Statements Sinus rhythm Probable left atrial enlargement Right bundle branch block Electronically Signed On 10-02-2024 0:41:[address] Mike Trevino Please click the below link to view image of tracing. EKG Date and Time:10/01/249 Electronically Signed by: MIKE TREVINO MD Date and Time: 10/02/24 004 Chest X-Ray : Additional Comments Procedure: DI CHEST,SINGLE VIEW 10/01/2024 10:56 PM Indication: CP Comparison: DI CHEST,SINGLE VIEW on DOS: 01/22/24 TECHNIQUE: DI CHEST,SINGLE VIEW FINDINGS/IMPRESSION: The lungs are clear. The cardiomediastinal silhouette is unremarkable. No pleural effusion or pneumothorax. No acute osseous abnormality. Cervical fusion hardware is noted. Electronically Signed by:MARIA VICTORIA KOHLER MD Date & Time: 10/01/24 4839 Heart Score: Heart Score Response (Comments) Value History Highly Suspicious 2 EKG Repolarization Disturb 1 Age >65 2 Risk Factors 1 or 2 risk factors 1 Troponin >3 x's Normal limit 2 Total 8 Departure Time of Disposition: 00:00 Disposition: ADMITTED INPATIENT Admitted to Inpatient Unit: yes, to hospitalist Impression: Primary Impression: NSTEMI (non-ST elevated myocardial infarction) Additional Impression: Acute on chronic renal failure Condition: Fair Referrals: NO PRIMARY CARE PROVIDER (PCP) Critical Care Note Total Time (mins): 30 Critical Care Note The very real possibility of a deterioration of this patient's condition required the highest level of my preparedness for sudden, emergent intervention. I provided critical care services, which included medication orders, frequent reevaluations of the patient's condition and response to treatment, ordering and reviewing test results, and discussing the case with various consultants. Excludes time spent performing separately billable procedures. The critical care time associated with the care of the patient was 30 minutes. Signature Scribe Signature: Scribed for Mike Trevino MD by Anna De La Garza . 10/02/24 00:40 Attestation: The note accurately reflects work and decisions made by me.Mike Trevino MD 10/01/24 23:37 MIKE TREVINO MD Oct 01, 2024 23:37 ANNA NOONAN Oct 02, 2024 00:40
--- NOTE | 2024-10-01 23:42 | RADIOLOGY REPORT ---
Procedure: DI CHEST,SINGLE VIEW 10/01/2024 10:56 PM Indication: CP Comparison: DI CHEST,SINGLE VIEW on DOS: 01/22/24 TECHNIQUE: DI CHEST,SINGLE VIEW FINDINGS/IMPRESSION: The lungs are clear. The cardiomediastinal silhouette is unremarkable. No pleural effusion or pneumo thorax. No acute osseous abnormality. Cervical fusion hardware is noted.
[2024-10-01 23:52] LABS: APTT 28 SECONDS (22-32); PROTHROMBIN TIME 10.1 SECONDS (9.0-12.0)
[2024-10-01 23:54] LABS: ETHANOL < 10 MG/DL (<10); MAGNESIUM 2.3 MG/DL (1.5-2.4)
[2024-10-01] MEDS ORDERED: heparin 10,000 units/1 ML INJ IV PRN (23:55)
[2024-10-01] MEDS: heparin 10,000 units/1 ML INJ IV ONE (23:56)
[2024-10-01] MEDS: heparin 25,000 UNIT/250ml bag 250 ML IV PRN (23:59)
[2024-10-02] VITALS (16 sets, daily range): BP systolic 108–134; BP diastolic 61–79; PULSE 47–65; RESP 11–20; TEMP 97.2–97.6; O2SAT 96–99
[2024-10-02] MEDS: heparin 10,000 units/1 ML INJ IV ONE (00:01)
[2024-10-02 00:06] LABS: ALANINE AMINOTRANSFERASE 23 U/L (12-78); ALBUMIN 3.2 G/DL (3.4-5.0); ALBUMIN/GLOBULIN RATIO 0.8 (1.1-1.5); ALKALINE PHOSPHATASE 83 IU/L (46-116); ASPARTATE AMINO TRANSFERASE 31 U/L (10-37); BILIRUBIN,DIRECT 0.1 MG/DL (0-0.3); BILIRUBIN,TOTAL 0.2 MG/DL (0.1-1.0); TOTAL PROTEIN 7.1 G/DL (6.4-8.2)
[2024-10-02] MEDS ORDERED: ondansetron/PF 4mg/2ml inj IV PRN ×2 (00:35→12:25)
[2024-10-02] MEDS ORDERED: magnesium Cl slow-release 64mg tablet PO PRN (00:35)
[2024-10-02] MEDS ORDERED: magnesium sulf-water 4G/100mL 100 ML IV PRN (00:35)
[2024-10-02] MEDS ORDERED: potassium Cl 40MEQ/1/2NS 520ml 520 ML IV PRN (00:35)
[2024-10-02] MEDS ORDERED: magnesium sulf-water 2g/50mL 50 ML IV PRN (00:35)
[2024-10-02] MEDS ORDERED: potassium Cl 20 mEq SR tablet PO PRN ×2 (00:35)
[2024-10-02] MEDS: nitroGLYCERIN 0.2mg/hour patch TD ONE (00:39)
[2024-10-02] MEDS: MESSAGE TO NURSING IV ONE ×2 (00:39→09:07)
[2024-10-02] MEDS ORDERED: CEFD300C3 PO (00:43)
--- NOTE | 2024-10-02 00:46 | ELECTROCARDIOGRAPH REPORT ---
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 Mike Trevino Measurements Intervals [place] Rate: 60 P: 47 DC: 176 QRS: 28 QRSD: 114 T: -32 QT: 441 QTc: 441 Interpretive Statements Sinus rhythm Borderline intraventricular conduction delay Borderline T abnormalities, inferior leads Electronically Signed On 10-02-2024 1:49:[address] Mike Trevino Please click the below link to view image of tracing.
[2024-10-02 01:12] LABS: HEMOGLOBIN A1C 5.8 % (4.5-6.2)
[2024-10-02] MEDS ORDERED: morphine 2 MG/ML inj. syringe IV PRN (02:05)
[2024-10-02] MEDS: metoprolol tartrate 50mg tablet PO ONE (02:47)
[2024-10-02] MEDS: morphine 2 MG/ML inj. syringe IV PRN (02:47)
[2024-10-02 03:17] LABS: MAGNESIUM 2.3 MG/DL (1.5-2.4)
--- NOTE | 2024-10-02 05:05 | HISTORY AND PHYSICAL-Residence ---
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 Patient reported chest pain started after he ate dinner and describes it as a burning pain nonradiating non positional, severity eight of 10 and last for about couple hours. Denied any shortness of breath cough profound sweating. Denied any similar symptoms in the past Due to his multiple ureteral procedure patient had cardiac clearance in February including stress test. Allergies: Coded Allergies: codeine (Verified Adverse Reaction, Unknown, SICK TO STOMACH, 10/01/24) Home Medications Home Medications Active Reported Cefdinir* (Cefdinir) 300 Mg Capsule 1 Cap PO Q12H 10 Days Metamucil Powder (Psyllium Husk (with Sugar)) 2,730 Gm Powder 3 Tbs PO DAILY Past Medical History Past Medical History Pyelonephritis status post Multiple ureteral procedure and stent Coronary artery disease status post stent in 2008 Past Surgical History Surgical History Comment Coronary artery disease status post stent 2009 Pyelonephritis secondary to nephrolithiasis status post ureteral stent and multiple procedure Family History Family History: FH: heart attack (Mother,) Past Social History Smoking: Non-Smoker Alcohol Use: None Drug Use: None Lives with: Family Lives In: Home ROS ROS The history of present illness included a review of system, which yielded relevant positives and negatives Exam Vitals: Vital Signs Date Time Temp Pulse Resp B/P (MAP) Pulse Ox O2 Delivery O2 Flow Rate FiO2 10/02/24 02:51 72 16 142/86 (104) 97 0 10/01/24 22:20 98.5 General: General: Awake and Alert, no acute distress. HEENT: Conjunctiva pink, Sclera clear, Mucus Membranes moist. Neck: Supple without masses and tenderness. Resp: Lungs clear to auscultation bilaterally. Heart: Regular Rate and rhythm, normal S1 and S2 without murmur Abdomen: Soft and non tender no organomegaly Extremities: No cyanosis,clubbing or edema. Skin: Warm and Dry. Neurological: Speech is clear, alert, and oriented x 4, no gross neurological deficits Diagnostic Data Last Recorded Lab Results: 10/01/24 2223 10/02/24 0248 Diagnostic Data: Laboratory Tests Test 10/01/24 22:23 10/02/24 01:53 Prothrombin Time 10.1 SECONDS (9.0-12.0) INR International Normalized Ratio 1.0 INR Activated Partial Thromboplast Time 28 SECONDS (22-32) APTT (Heparin Protocol) 69 SECONDS (45-60) H Coagulation Comments Advance Care Planning Advanced Care plannin - 30 Minutes Additional Plan 74 years old male with history of coronary artery disease status post stent 2008, pyelonephritis status post ureteral stent presented to ED due chest pain Chest pain NSTEMI Troponin 856 trended up to to 3000 EKG: Sinus rhythm, rate 60, normal axis, right bundle branch block Mildly elevated BNP Chest x-ray: unremarkable Started on heparin drip, Aspirin 325, nitroglycerin patch, metoprolol, atorvastatin Lipid panel is pending ECHO ordered, cardiology consult in a.m. History of pyelonephritis status post ureteral stent Patient is on antibiotics cefdinir, UA ordered we will continue home medication and adjusted medication as urine culture Code Status: full DVT prophylaxis: On heparin drip Analgesia/sedation: Morphine, nitro patch Line/tube: Peripheral GI prophylaxis: Protonix Nutrition: NPO waiting for Cardiology consult Prognosis: Guarded Disposition: Continue monitoring in PCU floor with telemetry, waiting for Cardiology consult Eleni Hopson MD Internal Medicine Resident Date of Service: Oct 02, 2024 Billing Provider: MALORIE LADD MD, ELAHE, RES Oct 02, 2024 05:05
[2024-10-02 07:30] LABS: CHOLESTEROL 155 MG/DL (0-200); HDL CHOLESTEROL 39 MG/DL (35-60); LDL CHOLESTEROL 100 MG/DL (50-100); THYROID STIMULATING HORMONE 3.26 ulU/ml (0.34-4.50); TRIGLYCERIDES 61 MG/DL (20-135)
[2024-10-02] MEDS: atorvastatin 20mg tablet PO SCH (07:52)
[2024-10-02] MEDS: docusate sod 100mg capsule PO SCH (07:52)
[2024-10-02] MEDS: aspirin 81mg, enteric-coated 1 TAB TABLET.DR PO SCH (07:52)
[2024-10-02] MEDS: furosemide 20 MG/2 ML vial IV ONE (07:53)
[2024-10-02] MEDS: cefdinir 300mg capsule PO SCH (07:53)
[2024-10-02] MEDS: pantoprazole 40 MG vial IV SCH (07:53)
[2024-10-02] MEDS: K and/or MAG REPLACEMENT MC SCH (08:00)
--- NOTE | 2024-10-02 09:24 | ELECTROCARDIOGRAPH REPORT ---
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 ROSE Weeks Measurements Intervals [place] Rate: 58 P: 52 WY: 178 QRS: -8 QRSD: 108 T: -11 QT: 469 QTc: 461 Interpretive Statements Sinus rhythm Nonspecific T abnormalities, lateral leads Electronically Signed On 10-02-2024 19:17:[address] ROSE Weeks Please click the below link to view image of tracing.
[2024-10-02] MEDS ORDERED: fentaNYL/PF 50MCG/1 ML 2ML syringe ONE (09:33)
[2024-10-02] MEDS ORDERED: midazolam 1 mg/ML 2ml injection ONE (09:33)
[2024-10-02] MEDS ORDERED: LIDOcaine 1% 30ml preserv. free vial ONE (09:33)
[2024-10-02] MEDS ORDERED: verapamil 2.5 mg/ml inj IV ONE (09:33)
[2024-10-02] MEDS ORDERED: iohexol 350 MG/ML 50ML vial IV ONE (09:34)
[2024-10-02] MEDS ORDERED: heparin 1,000unit/ml 10ml vial 10 ML ONE (09:34)
[2024-10-02] MEDS ORDERED: iohexol 350MG/ML 100ml bottle IV ONE ×2 (09:34→10:41)
[2024-10-02] MEDS ORDERED: nitroGLYCERIN 500mcg/5mL D5W 10 ML IV ONE (09:35)
[2024-10-02] MEDS ORDERED: ticagrelor 90mg tablet ONE (10:56)
[2024-10-02] MEDS ORDERED: aspirin 325mg tablet ONE (11:04)
[2024-10-02] MEDS: acetylcysteine 200 MG/ml 4ml vial PO SCH (12:03)
[2024-10-02] MEDS: sodium bicarbonate 1meq/ml inj 150 ML in sodium chloride 0.45% 1,000 ML IV SCH (12:03)
[2024-10-02] MEDS ORDERED: OXAZEpam 15mg capsule PO PRN (12:25)
[2024-10-02] MEDS ORDERED: proCHLORperazine 10 MG/2 ml inj IV PRN (12:25)
[2024-10-02] MEDS: ticagrelor 90mg tablet PO SCH (20:51)
[2024-10-03] VITALS (20 sets, daily range): BP systolic 113–175; BP diastolic 66–82; PULSE 48–81; RESP 16–22; TEMP 97.1–98; O2SAT 81–100
[2024-10-03 06:59] LABS: BASOPHILS # (AUTO) 0.1 X10'3 (0-0.2); BASOPHILS % (AUTO) 0.7 % (0-1); EOSINOPHILS # (AUTO) 0.2 X10'3 (0-0.9); HEMATOCRIT 37.3 % (42.0-52.0); HEMOGLOBIN 12.3 g/dl (14.0-17.9); LYMPHOCYTES # (AUTO) 0.9 X10'3 (1.1-4.8); LYMPHOCYTES % (AUTO) 11.6 % (21-51); MEAN CORPUSCULAR HEMOGLOBIN 28.6 PG (27.0-31.0); MEAN CORPUSCULAR VOLUME 86.9 FL (78-98); MONOCYTES # (AUTO) 0.6 X10'3 (0-0.9); MONOCYTES % (AUTO) 8.3 % (2-12); NEUTROPHILS % (AUTO) 77.4 % (42-75); PLATELET COUNT 230 X10'3 (140-440); RED CELL DISTRIBUTION WIDTH 14.4 % (11.5-14.5); WHITE BLOOD COUNT 7.7 X10'3 (4.5-11.0)
[2024-10-03 07:24] LABS: ALANINE AMINOTRANSFERASE 24 U/L (12-78); ALBUMIN 2.5 G/DL (3.4-5.0); ALBUMIN/GLOBULIN RATIO 0.8 (1.1-1.5); ALKALINE PHOSPHATASE 72 IU/L (46-116); ANION GAP 9 (8-16); ASPARTATE AMINO TRANSFERASE 54 U/L (10-37); BILIRUBIN,TOTAL 0.6 MG/DL (0.1-1.0); BLOOD UREA NITROGEN 30 MG/DL (7-18); BUN/CREATININE RATIO 14.1 (10.0-20.0); CALCIUM 8.1 MG/DL (8.5-10.1); CHLORIDE 105 MMOL/L (99-107); CHOL/HDL RATIO 3.8 (0.00-4.99); CHOLESTEROL 129 MG/DL (0-200); CREATININE 2.13 MG/DL (0.60-1.10); GLUCOSE 107 MG/DL (70-104); HDL CHOLESTEROL 34 MG/DL (35-60); LDL CHOLESTEROL 85 MG/DL (50-100); MAGNESIUM 1.8 MG/DL (1.5-2.4); POTASSIUM 3.6 MMOL/L (3.5-5.1); PRO BRAIN NATRIURETIC PEPTIDE 2989 PG/ML (0-450); SODIUM 141 MMOL/L (135-145); TOTAL CARBON DIOXIDE 27.1 MMOL/L (24-32); TOTAL PROTEIN 5.8 G/DL (6.4-8.2); TRIGLYCERIDES 90 MG/DL (20-135); eCRCL 36 ML/MIN; eGFR 30 ML/MIN
[2024-10-03] MEDS: metoprolol tartrate 25mg tablet PO SCH (08:00)
[2024-10-03] MEDS ORDERED: LIDOcaine 1% 30ml preserv. free vial ONE (09:03)
[2024-10-03] MEDS ORDERED: iohexol 350MG/ML 100ml bottle IV ONE ×2 (09:03→10:23)
[2024-10-03] MEDS ORDERED: midazolam 1 mg/ML 2ml injection ONE (09:03)
[2024-10-03] MEDS ORDERED: verapamil 2.5 mg/ml inj IV ONE (09:03)
[2024-10-03] MEDS ORDERED: fentaNYL/PF 50MCG/1 ML 2ML syringe ONE (09:03)
[2024-10-03] MEDS ORDERED: heparin 1,000unit/ml 10ml vial 10 ML ONE (09:03)
[2024-10-03] MEDS ORDERED: nitroGLYCERIN 500mcg/5mL D5W 5 ML IV ONE ×2 (09:12→10:34)
[2024-10-03] MEDS ORDERED: heparin 25,000 UNIT/250ml bag 250 ML IV ONE (09:45)
[2024-10-03] MEDS ORDERED: heparin 1,000 UNITS/NS 500ml 500 ML ONE (09:59)
[2024-10-03] MEDS ORDERED: ticagrelor 90mg tablet ONE (10:43)
--- NOTE | 2024-10-03 10:46 | ELECTROCARDIOGRAPH REPORT ---
[facility] Test Date: 2024-10-02 Test Time: 20:17:37 Pat Name: FAISAL FELDER Department: 3rd FLOOR PCU Room: 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 ROSE Kearney Measurements Intervals [place] Rate: 59 P: 45 WY: 169 QRS: -4 QRSD: 104 T: -22 QT: 470 QTc: 466 Interpretive Statements Sinus rhythm Low voltage, precordial leads Anteroseptal infarct, old Borderline T abnormalities, inferior leads Electronically Signed On 10-03-2024 18:34:[address] ROSE Kearney Please click the below link to view image of tracing.
[2024-10-03] MEDS ORDERED: nitroGLYCERIN 0.4mg SUBLingual tab SL PRN (11:40)
--- NOTE | 2024-10-03 11:43 | ELECTROCARDIOGRAPH REPORT ---
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 ROSE Kearney Measurements Intervals [place] Rate: 55 P: 44 ID: [id number] QRS: -8 QRSD: 107 T: -59 QT: 533 QTc: 510 Interpretive Statements Sinus rhythm Low voltage, precordial leads Anteroseptal infarct, old Abnormal T, consider ischemia, diffuse leads Prolonged QT interval Electronically Signed On 10-03-2024 18:34:[address] ROSE Kearney Please click the below link to view image of tracing.
[2024-10-03] MEDS: docusate sod 100mg capsule PO ONE (12:56)
[2024-10-03] MEDS: acetaminophen 325mg tablet PO PRN (13:04)
[2024-10-03 14:03] LABS: BILIRUBIN,URINE NEGATIVE (Neg); COLOR,URINE YELLOW (Yellow); GLUCOSE, URINE NEGATIVE (Neg); KETONES,URINE NEGATIVE (Neg); LEUKOCYTE ESTERASE ,URINE SMALL (Neg); NITRITES, URINE NEGATIVE (Neg); OCCULT BLOOD,URINE LARGE (Neg); PH,URINE 7.5 (4.8-8.0); PROTEIN,URINE TRACE mg/dl (Neg); UROBILINOGEN,URINE 0.2 E.U/dL (0.2-1.0)
[2024-10-03 14:13] LABS: CLARITY,URINE CLOUDY (Clear); UA COLLECTION TYPE CLN CATCH MIDSTREAM
[2024-10-03 14:15] LABS: BACTERIA,URINE 1+ /HPF (Neg); RBC,URINE TNTC /HPF (0-2)
[2024-10-03 14:28] LABS: SQUAMOUS EPITHELIAL CELL,UR NONE SEEN /LPF (FEW)
--- NOTE | 2024-10-03 19:01 | PROGRESS NOTE- Residence ---
Progress Note - Resident Providers to CC Resident Creating Document: DIANNE THAKUR LUC, ISABEL ~ Antibiotic Timeout Antibiotic Ordered?: Yes Subjective The patient was seen and examined at bedside today. He underwent stenting to RCA today. Objective Vital Signs Date Time Temp Pulse Resp B/P (MAP) Pulse Ox O2 Delivery O2 Flow Rate FiO2 10/03/24 06:00 62 10/03/24 04:00 17 135/82 (99) 98 Room Air 10/03/24 02:00 98.0 10/02/24 02:51 0 Result Diagram: 10/03/2462610/03/24626 General: Awake and Alert, no acute distress. HEENT: Conjunctiva pink, Sclera clear, Mucus Membranes moist. Neck: Supple without masses and tenderness. Resp: Lungs clear to auscultation bilaterally. Heart: Regular Rate and rhythm, normal S1 and S2 without murmur Abdomen: Soft and non tender no organomegaly Extremities: No cyanosis,clubbing or edema. Skin: Warm and Dry. Neurological: Speech is clear, alert, and oriented x 4, no gross neurological deficits Coagulation Studies Laboratory Tests Test 10/01/24 22:23 10/02/24 08:13 10/02/24 11:00 Prothrombin Time 10.1 SECONDS (9.0-12.0) INR International Normalized Ratio 1.0 INR Activated Partial Thromboplast Time 28 SECONDS (22-32) APTT (Heparin Protocol) 54 SECONDS (45-60) Coagulation Comments Activated Clotting Time 193 SEC (101-148) H Assessment Assessment A 74 years old male with history of coronary artery disease status post stent 2008, pyelonephritis status post ureteral stent presented to ED due chest pain. Plan Plan NSTEMI s/p 3 stents Patient underwent 2 stents to the left coronaries yesterday and one stent to the right coronary today. Management as per Dr. Weeks. Continue Brilinta 90 mg twice daily and aspirin 81 mg daily. Atorvastatin 80 mg daily, metoprolol 25 mg b.i.d. Nitroglycerin 0.4 mg p.r.n. for chest pain. History of pyelonephritis status post ureteral stent Patient is on home antibiotics cefdinir. Continue. Urinalysis positive for leukocyte esterase and WBCs. Follow up with the urine culture and sensitivity. SANTY vs CKD Received lot of contrast from catheterization. Continue Mucomyst, bicarb drip. Code Status: full Analgesia/sedation: Morphine Line/tube: Peripheral GI prophylaxis: Protonix Nutrition: Heart healthy diet Prognosis: Guarded Disposition: Continue monitoring in PCU floor with telemetry. Anticipate discharge tomorrow. Dianne Thakur MD Internal Medicine Resident, PGY-1 Date of Service: Oct 03, 2024 Billing Provider: LIDIA SESAY MD,DIANNE CALLE, RES Oct 03, 2024 19:01
--- NOTE | 2024-10-03 19:03 | CARDIOLOGY REPORT ---
APPROVED REPORT EXAM: Comprehensive 2D, Doppler, and color-flow Echocardiogram. Patient Location: 3027 B Heart Rate: 70's bpm Rhythm: SINUS Indications CHEST PAIN STENT x2 10-02-24 STENT x1 2008 ELEVATED TROPONIN (856, 3000) Senior Reliability Engineer: MD Mimi Previous echo: NONE AVAILABLE (AFTER HOURS) 2D Dimensions RVDd 4.2 cm IVSd 0.8 (0.7-1.1cm) LVDd 5.2 cm PWd 1.0 (0.7-1.1cm) IVSs 1.0 (0.8-1.2cm) LVDs 4.1 (2.5-4.0cm) PWs 1.2 (0.8-1.2cm) LVOT Diameter 2.21 (1.8-2.4cm) IVC 16.45 mmFS (%) 22.3 % SV 59.0 ml CO 11.7 L/min M-Mode Dimensions Left Atrium(MM) 4.30 (2.5-4.0cm) Aortic Root 4.08 (2.2-3.7cm) Aortic Cusp Exc 2.10 (1.5-2.0cm) Aortic Valve AoV Peak Suhail. 120.0 cm/s AoV VTI 25.1 cm AO Peak GR. 5.8 mmHg AO Mean GR. 3 mmHg LVOT VTI 18.44 cm LVOT Peak Suhail. 84.8 cm/s NEGIN(VTI)/BSA 2.82 cm2/m2 NEGIN (VTI) 2.82 cm2 Mitral Valve MV E Velocity 47.9 cm/s MV Peak Gr. 2 mmHg MV DECEL TIME 200 ms MV A Velocity 99.6 cm/s MV PHT 68 ms E/A Ratio 0.5 MVA (PHT) 3.24 cm2 MV VMax74.9 cm/s TDI Lateral E' P. V5.42 cm/s E/Lateral E' 8.8 Tricuspid Valve TR P. Velocity 237 cm/s RAP ESTIMATE 10 mmHg TR Peak Gr. 22 mmHg RVSP 32 mmHg LEFT VENTRICLE Normal LV size and wall thickness. Overall systolic function is mildly reduced. Grade 1 Impaired rela xation (low to normal filling pressures) LVEF is 50-55%. RIGHT VENTRICLE RV is moderately dilated in size with normal function. Elevated right heart presures as noted above. ATRIA Left atrium is mildly dilated. AORTIC VALVE Trileaflet AV appears mildly sclerotic and calcified without stenosis. Trace insufficiency. MITRAL VALVE Mild MV annular calcification without stenosis. Mild regurgitation. TRICUSPID VALVE TV appears structurally normal with trace regurgitation. PULMONIC VALVE Normal PV without stenosis, physiologic insufficiency. GREAT VESSELS Aortic root is mildly dilated. IVC is normal in size and collapses greater than 50% with inspir ation. PERICARDIUM Normal pericardium. No effusion. Other Information Study Quality: Adequate
[2024-10-03] MEDS ORDERED: docusate sod 100mg capsule PO SCH (20:00)
[2024-10-03] MEDS: polyethylene glycol 3350 17gm powd pack PO SCH (20:32)
[2024-10-03] MEDS: ticagrelor 90mg tablet PO SCH (20:33)
[2024-10-03] MEDS: sodium bicarbonate 1meq/ml inj 150 ML in sodium chloride 0.45% 1,000 ML IV SCH (22:00)
[2024-10-04 02:00] VITALS: BP 118/71; PULSE 77; RESP 17; TEMP 98.3; O2SAT 94
[2024-10-04 06:11] LABS: BASOPHILS # (AUTO) 0.1 X10'3 (0-0.2); BASOPHILS % (AUTO) 0.6 % (0-1); EOSINOPHILS # (AUTO) 0.2 X10'3 (0-0.9); EOSINOPHILS % (AUTO) 2.2 % (0-6); HEMATOCRIT 32.3 % (42.0-52.0); HEMOGLOBIN 11.2 g/dl (14.0-17.9); LYMPHOCYTES # (AUTO) 1.1 X10'3 (1.1-4.8); LYMPHOCYTES % (AUTO) 12.6 % (21-51); MEAN CORPUSCULAR HEMOGLOBIN 29.8 PG (27.0-31.0); MEAN CORPUSCULAR HGB CONC 34.6 g/dL (33.0-36.5); MEAN CORPUSCULAR VOLUME 86.1 FL (78-98); MONOCYTES # (AUTO) 0.8 X10'3 (0-0.9); MONOCYTES % (AUTO) 9.3 % (2-12); NEUTROPHILS # (AUTO) 6.8 X10'3 (1.8-7.7); NEUTROPHILS % (AUTO) 75.3 % (42-75); PLATELET COUNT 210 X10'3 (140-440); RED BLOOD COUNT 3.76 X10'6 (4.70-6.10); RED CELL DISTRIBUTION WIDTH 14.3 % (11.5-14.5)
[2024-10-04 06:17] LABS: ALANINE AMINOTRANSFERASE 19 U/L (12-78); ALBUMIN 2.2 G/DL (3.4-5.0); ALBUMIN/GLOBULIN RATIO 0.7 (1.1-1.5); ALKALINE PHOSPHATASE 62 IU/L (46-116); ANION GAP 7 (8-16); ASPARTATE AMINO TRANSFERASE 45 U/L (10-37); BILIRUBIN,TOTAL 0.7 MG/DL (0.1-1.0); BLOOD UREA NITROGEN 30 MG/DL (7-18); CALCIUM 8.1 MG/DL (8.5-10.1); CHLORIDE 103 MMOL/L (99-107); GLUCOSE 97 MG/DL (70-104); POTASSIUM 3.6 MMOL/L (3.5-5.1); SODIUM 139 MMOL/L (135-145); TOTAL CARBON DIOXIDE 29.1 MMOL/L (24-32); TOTAL PROTEIN 5.3 G/DL (6.4-8.2); eCRCL 33 ML/MIN; eGFR 28 ML/MIN
[2024-10-04 06:18] LABS: CHOL/HDL RATIO 3.3 (0.00-4.99); CHOLESTEROL 113 MG/DL (0-200); HDL CHOLESTEROL 34 MG/DL (35-60); LDL CHOLESTEROL 73 MG/DL (50-100); MAGNESIUM 1.8 MG/DL (1.5-2.4); TRIGLYCERIDES 64 MG/DL (20-135)
[2024-10-04 07:21] VITALS: BP 146/77; PULSE 74; RESP 14; TEMP 97.6; O2SAT 98
[2024-10-04 08:00] VITALS: RESP 16; O2SAT 98
[2024-10-04] MEDS ORDERED: ASPI-1071 PO (10:31)
[2024-10-04] MEDS ORDERED: LOP25T PO (10:31)
[2024-10-04] MEDS ORDERED: TICA90TA PO (10:31)
[2024-10-04] MEDS ORDERED: ATOR40TA71 PO (10:31)
[2024-10-04 11:00] VITALS: BP 119/68; PULSE 72; RESP 16; TEMP 98.1; O2SAT 98
--- NOTE | 2024-10-04 11:55 | ELECTROCARDIOGRAPH REPORT ---
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 ROSE Kearney Measurements Intervals [place] Rate: 70 P: 49 [place]: 167 QRS: -20 QRSD: 149 T: -23 QT: 439 QTc: 474 Interpretive Statements Sinus rhythm Right bundle branch block Electronically Signed On 10-04-2024 17:57:[address] ROSE Kearney Please click the below link to view image of tracing.
--- NOTE | 2024-10-04 13:01 | PROGRESS NOTE ---
Progress Note Cardiology Providers to CC ~ Subjective Subjective Patient seen and examined this morning. Overall he is doing well with no chest pain or shortness of breath. He had successful PTCA stenting of totally occluded RCA on . Objective Result Diagram: 10/04/24 0521 10/04/24 0521 Objective General: Normal body habitus, no acute distress, HEENT: Sclerae clear, PERRL, gums without lesions or bleeding, oropharynx clear without erythema or exudate. Neck: Supple without enlargement of the thyroid, or lymphadenopathy, Chest: Normal size and shape, no tenderness, nonlabored breathing, Breath sounds clear to auscultation. Heart: Regular in rate and rhythm, S1 and S2 normal, no S3-S4 or murmurs. Abdomen: Soft, nontender, no organomegaly, bowel sounds present. Extremities: No edema cyanosis or clubbing. Coagulation Studies Laboratory Tests Test 10/01/24 22:23 10/02/24 08:13 10/02/24 11:00 Prothrombin Time 10.1 SECONDS (9.0-12.0) INR International Normalized Ratio 1.0 INR Activated Partial Thromboplast Time 28 SECONDS (22-32) APTT (Heparin Protocol) 54 SECONDS (45-60) Coagulation Comments Activated Clotting Time 193 SEC (101-148) H Problem\Assessment\Plan Additional Plan 1. * A 74-year-old male with history of CAD. Prior history of stenting in 2008 x 2 on two separate occasions, [place] and [place] and now presenting with non-ST elevation MA, elevated troponin . Patient had PTCA stenting of circumflex artery with 3.5/18 resolute vanessa stent. He had PTCA stenting of the diagonal branch with 2.25/15 resolute vanessa stent. He had PTCA stenting of the RCA on 10/03/2024 with 3.5/38 and 3.5/22 resolute vanessa stent in overlapping fashion with good results. Importance of uninterrupted aspirin and Brilinta at least for one year emphasized to the patient. Continue statins 2. * CKD, elevated BUN and creatinine. BUN of 30 creatinine of 2.3 on 10/04/2024 3. * Hyperlipidemia. Recommend keeping LDL less than 55 mg percent. 4. Other comorbidities include renal stone, renal stenting, and CKD. BRICE KEARNEY MD Oct 04, 2024 13:01
--- NOTE | 2024-10-04 13:05 | CONSULTATION ---
DATE OF CONSULTATION: 10/02/2024 DICTATING PHYSICIAN: ROSE Weeks MD CARDIOLOGY CONSULTATION PRIMARY PHYSICIAN: [facility]. COLLECTION SPECIALIST: ROSE Weeks MD IDENTIFICATION: The patient is a 74-year-old male with hyperlipidemia, CAD, prior history of stenting, who has presented with a non-Q-wave myocardial infarction. HISTORY OF PRESENT ILLNESS: The patient has a history of coronary stenting dating back to 2008 when he was visiting [place], had evidence of myocardial infarction requiring a stent. He required a second stent. He was told to go to [facility], which was his [place] place and he came up here. About 10 days later, he had another episode of chest pain. He ended up in the [facility], [place] and had a stenting of his circumflex artery with 3.5/12 mm Promus stent by Dr. Ware. Apparently, he followed by Dr. Higginbotham whom he saw for about 4-5 years. Last visit looks like it is back in 2019 and since then he is just being followed by CT. The patient exercises about 3-4 times a week, 15 minutes a day, walks 2-3 blocks, reported mild dyspnea while going uphill. No history of sustained palpitations, or syncopal episode. No history of congenital or rheumatic heart disease. No history of CHF. The patient does not remember the details about his ejection fraction. The patient does have a history of bilateral renal artery renal stones with aortic stenosis requiring stenting. He has a BUN of 39, creatinine of 2.37. Currently, was seen by Dr. Sanders, had a ureteral stent. Subsequently, he was being followed by CT monument letterer and Urologist. Apparently, he has had a stent which needs to come out in the next few weeks per the patient. Last night after dinner, the patient started having substernal chest discomfort, burning 8/10, which persisted until he came here and given nitro patch and resolved closely over midnight. He had recurrence of chest pain again around 7:00 a.m. lasting 15 minutes. PAST MEDICAL HISTORY: * CAD status post VT and stenting x 2. * Hyperlipidemia. * Bilateral renal stone, ureteric stenting, and CKD. * History of diverticulitis. PAST SURGICAL HISTORY: Noncontributory. FAMILY HISTORY: Father at 81. Mother at 69. 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 He lives with his in [place]. No history of tobacco use or alcohol or substance. REVIEW OF SYSTEMS: HEENT: Wears reading glasses, mild hearing impairment. RESPIRATORY: Exertional shortness of breath MUSCULOSKELETAL: Arthralgia. CENTRAL NERVOUS SYSTEM: No stroke, TIA, seizures. PSYCHIATRIC: No anxiety or depression. SKIN: None. MEDICATIONS AT HOME: Under hyperlipidemia, mentioned the patient is noncompliant and does not want to take statins. He was put on Repatha, which he also discontinued after reading on the internet. Currently on Ceftin for his urinary infection. PHYSICAL EXAMINATION: GENERAL: Conscious, alert, oriented, and comfortable at rest. His and daughter at bedside. His daughter is an RN at [employer]. VITAL SIGNS: Temperature is normal 97.2, pulse 65, blood pressure 130/73. NECK: No JVD. Carotids are equally well felt. CARDIAC: Regular rate and rhythm. S1, S2 normal. No S3 or S4 or murmurs. LUNGS: Clear to auscultation bilaterally. ABDOMEN: Soft. Bowel sounds present. EXTREMITIES: No edema, cyanosis, or clubbing. CENTRAL NERVOUS SYSTEM: No lateralizing signs. LABORATORY DATA: Labs include sodium 140, potassium 4.1, carbon dioxide 24, BUN 39, creatinine 2.37, troponin 856, 1727, 3018, 12,920 and 15,866. DIAGNOSTIC DATA: EKG: Normal sinus rhythm, nonspecific ST-T changes, conduction disturbances. Chest x-ray: No CHF. IMPRESSION AND PLAN: * A 74-year-old male with history of CAD. Prior history of stenting in 2008 x 2 on two separate occasions, [place] and [place] and now presenting with non-ST elevation VT, elevated troponin 15 to age 65. Recommend cardiac catheter. Risks, benefits, and alternative options discussed. Informed consent obtained. The patient is on heparin and aspirin. * CKD, elevated BUN and creatinine. The patient will be treated with bicarbonate, Mucomyst. * Hyperlipidemia. Recommend keeping LDL less than 55 mg percent. Other comorbidities include renal stone, renal stenting, and CKD. ROSE Weeks MD TID: [id number] RECEIPT: [id number] /QUAN/KIAN
--- NOTE | 2024-10-04 13:34 | CARDIOLOGY REPORT ---
DATE OF SERVICE: 10/02/2024 DICTATING PHYSICIAN: ROSE Weeks MD CARDIAC CATHETERIZATION GENDER: Male. AGE: 74 years. HEIGHT: 191 cm. WEIGHT: 98 kg. BODY SURFACE AREA: 2.2 m2. PRIMARY PHYSICIAN: [facility]. STAFF ANALYST: ROSE Weeks MD INDICATION: The patient is a 74-year-old male with history of hyperlipidemia and with CAD, status post stenting. History of stenting dates back to 2008 when he was in [place], he had a PTCA stenting of the proximal LAD. Subsequently, about a week to 10 days later, he required another stent in the circumflex artery with 3.5/12 mm Promus stent. After that, he has done well. He was initially followed by his business administration program chair for a while and subsequently he is followed by [facility]. The patient has been having chest pain since last evening. The pain persisted, came to the emergency room and found to have elevated troponin all the way up to 15,000. The patient is on aspirin and heparin. After discussing risks, benefits and alternative options, the patient prefers to proceed with coronary angiography. Risks, benefits, and alternative options discussed. Informed consent obtained. PROCEDURE TECHNIQUE: The patient underwent left heart catheterization from right radial approach, 6-Micronesian arterial sheath. Post-procedure access site hemostasis secured with right radial band. The patient tolerated the procedure well. COMPLICATIONS: None. PROCEDURES DONE: * Ultrasound-guided right radial artery visualization and access. * Left heart catheterization. * Left ventriculogram. * Coronary cineangiography. * PTCA stenting of the 90% narrowing of the proximal circumflex artery. * PTCA stenting of the 80% narrowing in the diagonal 1. * Conscious sedation time of 60 minutes. FINDINGS: HEMODYNAMICS: Aortic systolic 120, diastolic 66, mean 85 mmHg. LVEDP of 19 mmHg. There is no significant gradient across the aortic valve. LEFT VENTRICULOGRAM: Poor LVEF of about 50-55%. CORONARY CINEANGIOGRAPHY: Left main coronary artery is a large-caliber vessel arising from left aortic sinus engaged with JL4 catheter from right radial approach. No minimal disease. LAD is a medium-caliber caliber arising at the bifurcation of the left main coronary and courses through the anterior intraventricular groove and ends by wrapping around the apex. Proximal LAD stent is widely patent. There is about 20% instant and mid LAD narrowing. Diagonal 1 is 2.25 mm with proximal 80% narrowing. Diagonal 2 is 2.25 mm caliber vessel, which divides into 2 divisions with luminal irregularities. Circumflex artery is a medium caliber vessel arising at the bifurcation of left main coronary, had a 90% thrombotic acute lesion with plaque rupture extending into the prior stent. It predominantly continued with the principal obtuse marginal branch, which divides into 2 divisions with mild luminal irregularities. There are left to right collaterals opacified in the distal RCA. Right coronary artery is a medium-caliber dominant vessel arising at right aortic sinus, 100% occluded in the proximal portion. There is AMARA 1 flow seen through the mid RCA. There is moderate calcification seen in the mid RCA. PTCA STENTING OF THE PROXIMAL CIRCUMFLEX ARTERY: After adequate heparinization, PTCA stenting was carried out. A 6-Micronesian XBC 4 guide with sidehole, gave good support. The circumflex lesion crossed with PT2 moderate wire. Lesion angioplastied with 2.75/12 mm balloon at 8 followed by 10 atmospheric pressure. The lesion was stented with 3.5/18 Resolute [place] stent, overlap covering the proximal half of the prior stent, post dilated to 15 atmosphere with 0% AMARA 3 flow. PTCA STENTING OF THE PROXIMAL DIAGONAL BRANCH: Lesion crossed with PT2 moderate wire. Primary stenting done with 2.0/15 Resolute [place]ej[place] stent deployed at 12 followed by 13 atmosphere post 0% AMARA 3 flow. The patient tolerated the procedure with no complication. IMPRESSION: A 74-year-old male with left ventricular ejection fraction 50% to 55%. LVEDP of 19 mmHg with no gradient across the aortic valve. Left main normal. Proximal LAD stent widely patent with 20% in-stent and mid LAD 20% narrowing. Diagonal 80% narrowing successfully angioplastied and stented with 2.25/15 Resolute [place] stent with 0% AMARA 3 flow. Proximal circumflex thrombotic 90% narrowing, successfully angioplasty and stented with 3.5/18 Resolute [place]ejay stent extending into the proximal half of the prior stent at 0 with AMARA 3 flow. Left to right collaterals were passed in the distal RCA, mid RCA 100% occluded with AMARA 1 flow. RECOMMENDATIONS: Recommend continued aggressive coronary risk factor modification, low-fat and low-cholesterol diet, maintaining ideal body weight, keeping the LDL less than 55% and regular exercise program. The option of trying to recanalize 100% RCA with antegrade approach. Risks, benefits, alternative options discussed with the patient and family. The patient and family agreed and we are going to arrange for the same. ROSE Weeks MD TID: [id number] RECEIPT: [id number] KAMERON/KIAN [facility]
--- NOTE | 2024-10-04 19:25 | DISCHARGE SUMMARY-Residence ---
Discharge Summary Providers to CC Resident Creating Document: MIKEL THAKUR, RES ~ Discharge Summary Admission Diagnosis: NSTEMI Hospital Course DATE OF ADMISSION: 10/02/2024 DATE OF DISCHARGE: 10/04/2024 Imaging: X-ray chest 10/01/2024: The lungs are clear. The cardiomediastinal silhouette is unremarkable. No pleural effusion or pneumothorax. No acute osseous abnormality. Cervical fusion hardware is noted. Echocardiogram 10/03/2024: Normal LV size and wall thickness. Overall systolic function is mildly reduced. Grade 1 Impaired relaxation (low to normal filling pressures) LVEF is 50-55%. RV is moderately dilated in size with normal function. Elevated right heart presures as noted above. Left atrium is mildly dilated. Trileaflet AV appears mildly sclerotic and calcified without stenosis. Trace insufficiency. Mild MV annular calcification without stenosis. Mild regurgitation. TV appears structurally normal with trace regurgitation. Normal PV without stenosis, physiologic insufficiency. Aortic root is mildly dilated. IVC is normal in size and collapses greater than 50% with inspiration. Normal pericardium. No effusion. Discharge Diagnosis\Comment: NSTEMI s/p 3 stents - mid LCX, diagonal and RCA UTI History of pyelonephritis status post ureteral stent SANTY vs CKD Operations\Procedures: Dr. Weeks- Cardiac catheterization with stent placement in proximal LCX and diagonal arteries on 10/02/2024 Cardiac catheterization with stent placement in RCA on 10/03/2024 Consultants: Dr. Weeks, web press roll tender Complications: None Condition on DC: Stable New Medications: Atorvastatin Calcium (Atorvastatin Calcium) 40 Mg Tablet 1 TAB PO DAILY for 30 Days, #30 TAB 0 Refills Aspirin (Ecotrin*) 81 Mg Tablet.dr 1 TAB PO DAILY for 30 Days, #30 TAB.SR Metoprolol Tartrate* (Lopressor tablet*) 25 Mg Tablet 25 MG PO BID for 30 Days, #60 TAB Hold for SBP below 100mm Hg Hold for Heart Rate below 60. Ticagrelor (Brilinta) 90 Mg Tablet 90 MG PO BID for 30 Days, #60 TAB Continued Medications: Cefdinir* (Cefdinir*) 300 Mg Capsule 1 CAP PO Q12H for 10 Days, #20 CAP Psyllium Husk (with Sugar) (Metamucil Powder) 2,730 Gm Powder 3 TBS PO DAILY Discharge Summary: History of present illness: A 73 years old male with history of coronary artery disease status post stent in 2008, pyelonephritis secondary to nephrolithiasis status post ureteral stent, presented to the ED due to chest pain. Patient reported chest pain started after he ate dinner and describes it as a burning pain non-radiating non positional, severity eight of 10 and last for about couple hours. Denied any shortness of breath cough profound sweating. Denied any similar symptoms in the past. Due to his multiple ureteral procedure patient had cardiac clearance in February including stress test. Course in the hospital: On evaluation in the ED, the patient had elevated troponins which were trending up from 856 to 22834. EKG showed sinus rhythm with a rate of 60, right bundle branch block. Washing Machine Repairer on-call, Dr. Weeks consulted and the patient was taken for emergency catheterization with stenting of proximal circumflex and diagonal arteries on the day of admission and stenting of RCA the following day because of CKD. He also received bicarb drip, Mucomyst to avoid contrast induced nephropathy. After the procedure, the patient did not have any new complaints of chest pain. His urinalysis tested positive for leukocyte esterase. Continued his home cefdinir that was prescribed for UTI. His final urine cultures did not grow any organisms. On the day of discharge, the patient was stable and had no new complaints. He is being discharged home on Brilinta and aspirin. Advice at discharge: Follow up with PCP in one week. Follow up with Dr. Weeks in his office. Also follow up with the channel cementer outsole machine, kidney doctor for your worsening kidney function. Continue Brilinta twice daily for 12 months and aspirin for life. Review with your web press roll tender before discontinuing medications. Continue cholesterol medication atorvastatin every day. In the event of chest pain, shortness of breath, or worsening of symptoms, call 911 or go to the ER immediately. Examination at discharge: General: Awake and Alert, no acute distress. HEENT: Conjunctiva pink, Sclera clear, Mucus Membranes moist. Neck: Supple without masses and tenderness. Resp: Lungs clear to auscultation bilaterally. Heart: Regular Rate and rhythm, normal S1 and S2 without murmur Abdomen: Soft and non tender no organomegaly Extremities: No cyanosis,clubbing or edema. Skin: Warm and Dry. Neurological: Speech is clear, alert, and oriented x 4, no gross neurological deficits Vital Signs Date Time Temp Pulse Resp B/P (MAP) Pulse Ox O2 Delivery O2 Flow Rate FiO2 10/04/24 11:00 98.1 72 16 119/68 (85) 98 Room Air 10/02/24 02:51 0 Laboratory Tests Test 10/03/24 06:27 10/03/24 13:35 10/04/24 05:21 White Blood Count 7.7 X10'3 9.0 X10'3 Red Blood Count 4.30 X10'6 3.76 X10'6 Hemoglobin 12.3 g/dl 11.2 g/dl Hematocrit 37.3 % 32.3 % Mean Corpuscular Volume 86.9 FL 86.1 FL Mean Corpuscular Hemoglobin 28.6 PG 29.8 PG Mean Corpuscular Hemoglobin Concent 33.0 g/dL 34.6 g/dL Red Cell Distribution Width 14.4 % 14.3 % Platelet Count 230 X10'3 210 X10'3 Mean Platelet Volume 8.0 FL 8.0 FL Neutrophils (%) (Auto) 77.4 % 75.3 % Lymphocytes (%) (Auto) 11.6 % 12.6 % Monocytes (%) (Auto) 8.3 % 9.3 % Eosinophils (%) (Auto) 2.0 % 2.2 % Basophils (%) (Auto) 0.7 % 0.6 % Neutrophils # (Auto) 6.0 X10'3 6.8 X10'3 Lymphocytes # (Auto) 0.9 X10'3 1.1 X10'3 Monocytes # (Auto) 0.6 X10'3 0.8 X10'3 Eosinophils # (Auto) 0.2 X10'3 0.2 X10'3 Basophils # (Auto) 0.1 X10'3 0.1 X10'3 CBC Comment Sodium Level 141 MMOL/L 139 MMOL/L Potassium Level 3.6 MMOL/L 3.6 MMOL/L Chloride Level 105 MMOL/L 103 MMOL/L Carbon Dioxide Level 27.1 MMOL/L 29.1 MMOL/L Anion Gap 9 7 Blood Urea Nitrogen 30 MG/DL 30 MG/DL Creatinine 2.13 MG/DL 2.30 MG/DL Estimated GFR/1.73 m2 30 ML/MIN 28 ML/MIN BUN/Creatinine Ratio 14.1 13.0 Glucose Level 107 MG/DL 97 MG/DL Calcium Level 8.1 MG/DL 8.1 MG/DL Magnesium Level 1.8 MG/DL 1.8 MG/DL Total Bilirubin 0.6 MG/DL 0.7 MG/DL Aspartate Amino Transf (AST/SGOT) 54 U/L 45 U/L Alanine Aminotransferase (ALT/SGPT) 24 U/L 19 U/L Alkaline Phosphatase 72 IU/L 62 IU/L Pro-B-Type Natriuretic Peptide 2989 PG/ML Total Protein 5.8 G/DL 5.3 G/DL Albumin 2.5 G/DL 2.2 G/DL Globulin 3.3 G/DL 3.1 G/DL Albumin/Globulin Ratio 0.8 0.7 Triglycerides Level 90 MG/DL 64 MG/DL Cholesterol Level 129 MG/DL 113 MG/DL LDL Cholesterol 85 MG/DL 73 MG/DL HDL Cholesterol 34 MG/DL 34 MG/DL Cholesterol/HDL Ratio 3.8 3.3 Chemistry Comments Urine Specimen Description Cln catch midstream Urine Color Yellow Urine Clarity Cloudy Urine pH 7.5 Urine Specific Gabriels 1.010 Urine Protein Trace mg/dl Urine Glucose (UA) Negative mg/dl Urine Ketones Negative mg/dl Urine Occult Blood Large Urine Nitrite Negative Urine Bilirubin Negative Urine Urobilinogen 0.2 E.U/dL Urine Leukocyte Esterase Small Urine RBC Tntc /HPF Urine WBC 5-10 /HPF Urine Squamous Epithelial Cells None seen /LPF Urine Bacteria 1+ /HPF Urine Culture Indicated Indicated Volume Urine Centrifuged 10 ml Urine Comment *Problems/Diagnosis: (1) NSTEMI (non-ST elevated myocardial infarction) Status: Acute Total Time Spent on D/C: > 30 Minutes Date of Service: Oct 04, 2024 Billing Provider: LIDIA SESAY MD, SOWMYA MANJARI, RES Oct 04, 2024 19:25
== END 2024-10-04 12:30 | disposition home or self-care (01) | DRG 321 ==
LOC: ER 22:16 → ED HOLD 10-02 00:39 → PCU 3S 10-02 05:32
PROVIDERS: ADMIT Internal Medicine Pulmonary Disease; ATTEND Family Medicine
PROC: 027135Z Dilation of Coronary Artery, Two Arteries with Two Drug-eluting Intraluminal Devices, Percutaneous Approach (ICD-10-PCS; principal; 2024-10-02)
PROC: 4A023N7 Measurement of Cardiac Sampling and Pressure, Left Heart, Percutaneous Approach (ICD-10-PCS; 2024-10-02)
PROC: B2111ZZ Fluoroscopy of Multiple Coronary Arteries using Low Osmolar Contrast (ICD-10-PCS; 2024-10-02)
PROC: B2151ZZ Fluoroscopy of Left Heart using Low Osmolar Contrast (ICD-10-PCS; 2024-10-02)
PROC: 027035Z Dilation of Coronary Artery, One Artery with Two Drug-eluting Intraluminal Devices, Percutaneous Approach (ICD-10-PCS; 2024-10-03)
DX: I21.4 Non-ST elevation (NSTEMI) myocardial infarction (principal); N17.9 Acute kidney failure, unspecified; I45.10 Unspecified right bundle-branch block; E78.5 Hyperlipidemia, unspecified; I25.10 Atherosclerotic heart disease of native coronary artery without angina pectoris; I25.2 Old myocardial infarction; I35.0 Nonrheumatic aortic (valve) stenosis; N18.9 Chronic kidney disease, unspecified; Z63.4 Disappearance and death of family member; Z87.442 Personal history of urinary calculi; Z95.5 Presence of coronary angioplasty implant and graft
CPT/HCPCS: 93306; 93458; 96374; 99291; C9600; C9607; 36415; 71045; 76937; 80048; 80053; 80061; 80076; 80320; 81001; 83036; 83735; 83880; 84132; 84145; 84443; 84484; 85025; 85347; 85610; 85730; 87081; 87088; 93005; 99152; 99153; A6258; C1725; C1751; C1769; C1874; C1894; G0378; J1644; J1938; J2003; J2250; J2270; J2470; J3010; J3490; J7030; Q9967

== ENCOUNTER 2024-11-23 17:49 | Emergency (ER) | payer OTHER, MEDICARE ==
[~2024-11-23] VITALS: Ht 188 cm; Wt 97.8 kg
[~2024-11-23 17:49] MED LIST changes: +ASPI-1071 PO; +ATOR40TA71 PO; +CEFD300C3 PO; -LEVO-65 PO; +LOP25T PO; +TICA90TA PO
--- NOTE | 2024-11-23 18:37 | ELECTROCARDIOGRAPH REPORT ---
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
--- NOTE | 2024-11-23 18:56 | RADIOLOGY REPORT ---
CHEST RADIOGRAPH Indication: CP Technique: Single frontal view of the chest was obtained Comparison: DI CHEST,SINGLE VIEW on DOS: 10/01/24, DI CHEST,SINGLE VIEW on DOS: 01/22/24 FINDINGS: Lines and Tubes: None Lungs: No focal consolidation. Pleura: No effusion. No pneumothorax. Cardiomediastinal contours: Unremarkable Bones: No acute osseous abnormality. Cervical fixation hardware is noted. IMPRESSION: No acute cardiopulmonary disease.
[2024-11-23 19:30] LABS: MEAN PLATELET VOLUME 7.4 FL (7.4-10.4); RED CELL DISTRIBUTION WIDTH 15.0 % (11.5-14.5)
[2024-11-23 19:53] LABS: CREATININE 2.31 MG/DL (0.60-1.10); PRO BRAIN NATRIURETIC PEPTIDE 792 PG/ML (0-450); TOTAL CARBON DIOXIDE 24.1 MMOL/L (24-32); eCRCL 32 ML/MIN; eGFR 28 ML/MIN
--- NOTE | 2024-11-23 23:40 | Physician Documentation ---
History of Present Illness ~ Chief Complaint: Shortness of Breath Stated Complaint: SOB Time Seen by MD: 23:37 Primary Medical Doctor: Nick Brooks NP HPI Patient presents to the emergency room with shortness of breath over the past four days. He felt that maybe his metoprolol was making him feel this way therefore he stopped it however no improvement of symptoms. He was seen here a month and a half ago for an NSTEMI where several stents were placed. He reports compliance with his blood thinner. Denies any chest pain or palpitations. He reports that there does not seem to be a pattern in the day where that has in the middle of the night eating walking around he just continuously has this subjective feeling of shortness of breath. Denies history of anxiety. Denies one-sided leg pain. Medication Reconciliation Allergies: Coded Allergies: codeine (Verified Adverse Reaction, Unknown, SICK TO STOMACH, 11/23/24) Scheduled Aspirin (Ecotrin*), 1 TAB PO DAILY Atorvastatin Calcium (Atorvastatin Calcium), 1 TAB PO DAILY Cefdinir* (Cefdinir*), 1 CAP PO Q12H, (Reported) Metoprolol Tartrate* (Lopressor tablet*), 25 MG PO BID Psyllium Husk (with Sugar) (Metamucil Powder), 3 TBS PO DAILY, (Reported) Ticagrelor (Brilinta), 90 MG PO BID Past Medical History Past Medical History: Diverticulitis, Kidney Stones, Renal Disease, UTI Past Surgical History: noncontributory Patient History: FH: heart attack (Mother,) Alcohol Use: None Drug Use: none Lives with: Family Lives In: Home Review of Systems ROS All review of systems negative except as per HPI Physical Exam Vital Signs: Temperature: 97.6, Source: Oral, Heart Rate: 70, Respiratory Rate: 16, BP: 153/86, Pulse Oximetry: 99, Weight: 97.800 Oxygen Flow Rate: 0 Physical Exam General: Patient is awake, alert, oriented x4 in no acute distress Head: Normocephalic and atraumatic. Eyes: Conjunctival normal. EOMI. PERRL. ENT: Mucous membranes moist. Neck: Supple, trachea is midline. Chest: Clear to auscultation bilaterally without rales, rhonchi, or wheezes. There is no accessory muscle use or retractions. Cardiac: RRR without murmurs, gallops, or rubs. Abd: Soft, nondistended, nontender, with normoactive bowel sounds. No guarding, rebound, or rigidity. Extremities: Normal strength. Normal range of motion. No deformities or edema. No calf tenderness to palpation Progress Results/Orders Results/Orders Orders - SHARATH DORADO MD PBNP (11/23/24 20:29) Completed Orders - SHARATH DORADO MD Hs Troponin I W Calculations (11/23/24 20:14) Hs Troponin I W Calculations (11/23/24 22:14) Hs Troponin I W Calculations (11/23/24 23:14) Vital Signs 11/23/24 11/23/24 11/23/24 18:16 20:16 22:44 Temp 97.6 97.6 Pulse 69 68 70 Resp 16 16 16 B/P (MAP) 135/74 154/83 (106) 153/86 (108) Pulse Ox 97 100 99 O2 Flow Rate 0 0 0 Laboratory Tests Test 11/23/24 19:20 11/23/24 21:38 11/23/24 22:21 White Blood Count 7.4 Red Blood Count 4.31 L Hemoglobin 12.7 L Hematocrit 37.1 L Mean Corpuscular Volume 86.2 Mean Corpuscular Hemoglobin 29.5 Mean Corpuscular Hemoglobin Concent 34.2 Red Cell Distribution Width 15.0 H Platelet Count 208 Mean Platelet Volume 7.4 Neutrophils (%) (Auto) 65.0 Lymphocytes (%) (Auto) 19.3 L Monocytes (%) (Auto) 10.9 Eosinophils (%) (Auto) 3.4 Basophils (%) (Auto) 1.4 H Neutrophils # (Auto) 4.8 Lymphocytes # (Auto) 1.4 Monocytes # (Auto) 0.8 Eosinophils # (Auto) 0.3 Basophils # (Auto) 0.1 CBC Comment Sodium Level 139 Potassium Level 5.0 Chloride Level 107 Carbon Dioxide Level 24.1 Anion Gap 8 Blood Urea Nitrogen 33 H Creatinine 2.31 H Estimated GFR/1.73 m2 28 BUN/Creatinine Ratio 14.3 Glucose Level 98 Calcium Level 8.8 Troponin I High Sensitivity 18 17 19 Pro-B-Type Natriuretic Peptide 792 H Albumin 3.4 Chemistry Comments Troponin I High Sens Percent Delta 5 11 Troponin I Hi Sens Absolute Change -1 2 EKG/XRAY/CT/US/VASC/MRI EKG : Additional Comment EKG interpreted by myself shows time of 183, rate 59, sinus bradycardia, borderline left axis deviation, right bundle-branch block Chest X-Ray : Additional Comments Exam: CHEST,SINGLE VIEW CHEST RADIOGRAPH Indication: CP Technique: Single frontal view of the chest was obtained Comparison: DI CHEST,SINGLE VIEW on DOS: 10/01/24, DI CHEST,SINGLE VIEW on DOS: 01/22/24 FINDINGS: Lines and Tubes: None Lungs: No focal consolidation. Pleura: No effusion. No pneumothorax. Cardiomediastinal contours: Unremarkable Bones: No acute osseous abnormality. Cervical fixation hardware is noted. IMPRESSION: No acute cardiopulmonary disease. Medical Decision Making Findings Patient presents to the emergency room with subjective shortness of breath as per HPI. Differentials include but are not limited to CHF exacerbation, pneumonia, pulmonary embolism, anxiety, viral syndrome therefore emergent labs and imaging indicated. Chest x-ray is reassuring as are labs. Possible element of anxiety. No tachycardia, no hypoxia no one-sided leg pain he had not feel patient requires investigation into possible pulmonary embolism especially in the light of him taking blood thinner. ER precautions discussed as well as the need to follow up with his doctor. Departure Disposition: HOME / SELF CARE / HOMELESS Impression: Primary Impression: Dyspnea Condition: Stable Discharge Instructions: Shortness of Breath, Adult, [id number] Referrals: NO PRIMARY CARE PROVIDER (PCP) Education Educated: Patient Educated regarding: diagnosis, treatment, need for follow up Signature Scribe Signature: No scribe Attestation: The note accurately reflects work and decisions made by me.Sharath Dorado MD 11/23/24 23:57 SHARATH DORADO MD Nov 23, 2024 23:40
[2024-11-24 00:34] VITALS: BP 135/71; PULSE 53; TEMP 97.6; O2SAT 95
[2024-11-24 00:37] VITALS: RESP 12
== END 2024-11-24 00:39 | disposition home or self-care (01) ==
LOC: ER 17:50
DX: R06.02 Shortness of breath (principal); Z88.5 Allergy status to narcotic agent; Z79.82 Long term (current) use of aspirin; Z79.899 Other long term (current) drug therapy; Z87.442 Personal history of urinary calculi
CPT/HCPCS: 36415; 71045; 80048; 83880; 84484; 85025; 93005; 99285